=== PATIENT | female | born 1940 | race Caucasian/White ===

== ENCOUNTER 2023-07-12 16:01 | Outpatient (OUT) | payer MEDICARE, SELFPAY ==
[2023-07-12 16:45] LABS: Bilirubin Urine NEGATIVE (NEGATIVE); Blood Urine TRACE-I (NEGATIVE); Clarity Urine CLEAR (CLEAR); Color Urine LT. YELLOW (YELLOW); Glucose Urine UA NEGATIVE (NEGATIVE); Ketones Urine NEGATIVE (NEGATIVE); Leukocyte Esterase Urine NEGATIVE (NEGATIVE); Nitrite Urine NEGATIVE (NEGATIVE); Protein Urine NEGATIVE (NEG/TRACE); Urobilinogen Urine 0.2 EU/dL (0.2-1.0); pH Urine 5.5 (5.0-9.0)
== END 2023-07-12 16:02 | disposition home or self-care (01) ==
LOC: LAB 16:10
PROVIDERS: PCP Nurse Practitioner Family
DX: R35.0 Frequency of micturition (principal); N39.0 Urinary tract infection, site not specified
CPT/HCPCS: 81003; 87086

== ENCOUNTER 2023-09-09 15:27 | Outpatient (OUT) | payer MEDICARE, SELFPAY ==
--- NOTE | 2023-09-09 | CT_ITS ---
[address] [address] Patient Name: CELI RAMIREZ MRN: [id number] date: 1940 Sex: F Assigned Patient Location: CT Current Patient Location: Accession/Order Number: [id number] Exam Date: 09/09/2023 15:32 Report Date: 09/12/2023 08:38 At the request of: PUJA LOPES Procedure: CT lung screening low-dose EXAMINATION: CT lung screening low-dose HISTORY: History of tobacco use COMPARISON: CT LUNG CANCER SCREENING 09/06/2022 TECHNIQUE: Axial, Coronal, and Sagittal images were created without the administration of IV contrast material. Dose reduction techniques were achieved by using automated exposure control and/or adjustment of mA and/or kV according to patient size and/or use of iterative reconstruction technique. FINDINGS: LUNGS: Stable mild bronchiectasis. No infiltrates, mass, or significant chronic interstitial changes. PLEURA: No mass, effusion, or pneumothorax. VASCULATURE: No abnormality. RODRI: No mass or pathologic adenopathy. MEDIASTINUM: No mass or pathologic adenopathy. CARDIAC: No enlargement, pericardial thickening, or significant calcification. AORTA: No aneurysm or dissection. CHEST WALL: No mass or axillary adenopathy BONES: No bone lesion or fracture. LIMITED ABDOMEN: No suspicious findings. Limited images of the upper abdomen. OTHER: Negative. CT/CT lung screening low-dose IMPRESSION: 1. Lung-RADS Category 1 Negative. No nodules and definitely benign nodules. Continue annual screening with LDCT in 12 months. Electronically authenticated by: SWAPNA MOTTA Date: 09/12/2023 08:38
== END 2023-09-09 15:28 | disposition home or self-care (01) ==
LOC: CT 15:27
PROVIDERS: PCP Nurse Practitioner Family; Visit Provider Nurse Practitioner Family
DX: Z87.891 Personal history of nicotine dependence (principal)
CPT/HCPCS: 71271

== ENCOUNTER 2024-03-02 15:06 | Outpatient (OUT) | payer MEDICARE, SELFPAY ==
--- NOTE | 2024-03-02 | US_ITS ---
[address] [address] Patient Name: CELI RAMIREZ MRN: [id number] date: 1940 Sex: F Assigned Patient Location: Current Patient Location: Accession/Order Number: [id number] Exam Date: 03/02/2024 15:49 Report Date: 03/05/2024 12:21 At the request of: PUJA LOPES Procedure: US carotid duplex BI EXAMINATION: US carotid duplex BI HISTORY: Bilateral carotid stenosis I65.23 COMPARISON: Ultrasound carotid duplex bilateral 02/03/2023 TECHNIQUE: Duplex Doppler ultrasound analysis of carotid and vertebral arteries. . Bilateral carotid arterial duplex examination was performed using B-mode, color flow and spectral analysis. Carotid stenosis is reported according to validated velocity parameters, similar to NASCET criteria. FINDINGS: RIGHT CAROTID ARTERY: Moderate amount of smooth plaque within carotid bulb resulting in 62% area reduction. RIGHT VERTEBRAL: Antegrade flow. Subclavian: 114/12 cm/s CCA: Prox: 100/12 cm/s Mid: 85/13 cm/s Distal: 74/14 cm/s BULB: 79/10 cm/s ICA: Prox: 120/30 cm/s Mid: 128/33 cm/s Distal: 114/30 cm/s ECA: 79/0 cm/s VERTEBRAL: 51/12 cm/s ICA/CCA ratio: PSV: 1.5 EDV: 2.6 LEFT CAROTID ARTERY: Moderate amount of smooth plaque resulting in 70% area reduction of the proximal ICA and 62% area reduction of the bulb. LEFT VERTEBRAL: Antegrade flow. Subclavian: 200/0 cm/s CCA: Prox: 116/20 cm/s Mid: 87/18 cm/s Distal: 89/20 cm/s BULB: 79/18 cm/s ICA: Prox: 91/23 cm/s Mid: 130/31 cm/s Distal: 75/17 cm/s ECA: 66/0 cm/s VERTEBRAL: 58/12 cm/s ICA/CCA ratio: PSV: 1.5 EDV: 1.6 US/US carotid duplex BI IMPRESSION: 1. 0-49% flow stenosis within the right and left carotid arteries. 2. Moderate amount of smooth atherosclerotic plaque within the carotid bulbs bilaterally and within the left proximal ICA, with up to 70% area reduction within the left proximal ICA. Spectral Doppler US Thresholds Stenosis (%) PSV (cm/sec) VICA/VCCA 0-49 <150 <2.5 50-69 150-225 2.5-4.0 >70 >225 >4.0 Electronically authenticated by: SWAPNA MOTTA Date: 03/05/2024 12:21
== END 2024-03-02 15:07 | disposition home or self-care (01) ==
PROVIDERS: PCP Nurse Practitioner Family; Visit Provider Nurse Practitioner Family
DX: I65.23 Occlusion and stenosis of bilateral carotid arteries (principal); I50.32 Chronic diastolic (congestive) heart failure
CPT/HCPCS: 36415; 83880; 93880

== ENCOUNTER 2024-11-07 14:08 | Outpatient (REF) | payer MEDICARE, SELFPAY ==
--- OUTSIDE RECORDS SUMMARY | 2024-11-07 14:24 | XMS_ITS | CCD ---
Author Organization [facility] CliniSyfl Care Team Providers Care [employer] Floorperson Name Role Phone DR PARDEEP CORDOVA Admitting Unavailable ZAK, DR FALL Primary Care Unavailable CORDOVA, DR FALL Attending Unavailable MARIANNE, PUJA Attending Unavailable MARIANNE, PUJA Admitting Unavailable CORDOVA, DR FALL Primary Care Unavailable MARIANNE, PUJA Attending Unavailable MARIANNE, PUJA Admitting Unavailable CORDOVA, DR FALL Primary Care Unavailable ZIEBER, DR GUERRERO Serrano Consulting Unavailable MARIANNE, PUJA Consulting Unavailable CORDOVA, DR FALL Primary Care Unavailable MARIANNE, PUJA Admitting Unavailable ZIEBER, DR GUERRERO Serrano Consulting Unavailable MARIANNE, PUJA Attending Unavailable MARIANNE, PUJA Consulting Unavailable MARIANNE, PUJA Attending Unavailable MARIANNE, PUJA Admitting Unavailable CORDOVA, DR FALL Primary Care Unavailable LANSING, DR CELESTE Preciado Consulting Unavailable MARIANNE, PUJA Consulting Unavailable PARDEEP CORDOVA Primary Care Physician PARDEEP CORDOVA Referring Unavailable MINERVA HECK Attending Unavailable Pura Herrmann. Attending Unavailable PARDEEP CORDOVA Referring Unavailable Pardeep Cordova II Primary Care Provider [phone] Bina Bojorquez Attending Provider Bina Tsang Attending Unavailable Bina Tsang Admitting Unavailable Pardeep Cordova Primary Care Unavailable Pardeep Corodva MD Primary Care Provider [phone] Puja Gutierrez NP Unavailable [phone] PUJA GUTIERREZ Attending Unavailable PUJA GUTIERREZ Attending Unavailable PUJA GUTIERREZ Attending Unavailable ISABEL COOK Attending Unavailable Allergies Allergy Classification Reported Allergen(s) Allergy Type Date of Onset Reaction(s) Facility (2 sources) Iodine (And Iodine Containting Drugs) Drug allergy (disorder) 3 [facility] (2 sources) lansoprazole Drug Allergy 3 [facility] (1 source) Omeprazole Drug Allergy [facility] (7 sources) Penicillins; Translations: [penicillins] Drug allergy (disorder) 3 Topography unknown (body structure) [facility] (2 sources) Contrast media; Translations: [Contrast Dye] Allergy to substance unknown [facility] (4 sources) Meperidine; Translations: [meperidine] Drug Allergy 3 Topography unknown (body structure), Nausea Only [facility] (7 sources) lansoprazole; Translations: [lansoprazole] Drug Allergy 3 Unknown [facility] (5 sources) Proton Pump Inhibitors; Translations: [Proton Pump Inhibitors] Allergy to substance 4 Unknown Reaction [facility] (1 source) Penicillins Drug allergy (disorder) 4 [facility] (2 sources) Penicillins Drug Allergy 4 Unknown [facility] (2 sources) Iodinated Contrast Media Drug Intolerance 4 Rash [facility] Medications Current Medications Medication Drug Class(es) Dates Sig (Normalized) Sig (Original) aspirin 81 mg delayed release oral tablet (4 sources) Platelet Aggregation Inhibitor, Nonsteroidal Anti-inflammatory Drug Start: 05-29-2018 Aspirin (Gerson Low Dose Aspirin) 81 mg Tablet,Delayed Release (Dr/Ec) Active 81 MG PO Daily May 28, 2018 11:00pm atorvastatin 40 mg oral tablet (7 sources) HMG-CoA Reductase Inhibitor Start: 04-18-2024 Atorvastatin Active MG PO April 18, 2024 12:00am Start: 01-05-2024 Atorvastatin 4 0 mg tablet Active MG PO April 17, 2024 11:00pm Start: 09-24-2021 take 1 mg by mouth once daily atorvastatin 40 mg Tab mg tab(s), Oral, Daily, Refills(s) 0 Start Date: 09/24/21 Status: Ordered cholecalciferol 0.025 mg oral tablet (2 sources) Vitamin D take 1 tablet by mouth in the morning cholecalciferol (Vitamin D-3) 25 MCG (1000 UT) tablet Take 1,000 Units by mouth in the morning. Active dexamethasone 1 mg/ml / neomycin 3.5 mg/ml / polymyxin b [id number] unt/ml ophthalmic suspension (2 sources) Aminoglycoside Antibacterial, Polymyxin-class Antibacterial, Corticosteroid Start: 2022 take 1 drop(s) into the eye(s) four times daily [id number] AMETHasone (Maxitrol) [id number] ophthalmic suspension INSTILL 1 DROP INTO BOTH EYES 4 TIMES A DAY FOR 5-7 DAYS 2023 Active dicyclomine hydrochloride 20 mg oral tablet (2 sources) Anticholinergic Start: 2023 End: 2024 dicyclomine (Bentyl) 20 MG tablet Indications: Irritable bowel syndrome, unspecified type Take 1 tablet (20 mg) by mouth in the morning and 1 tablet (20 mg) at noon and 1 tablet (20 mg) in the evening and 1 tablet (20 mg) before bedtime. Take before meals. 120 tablet 03/07/2024 03/07/2025 Active docosahexaenoic acid 120 mg / eicosapentaenoic acid 180 mg oral capsule (2 sources) take 1 capsule by mouth in the morning omega-3 (fish oil) 1000 MG capsule Take 2 g by mouth in the morning. Active esomeprazole 40 mg delayed release oral capsule (1 source) Proton Pump Inhibitor Start: 2024 take 1 capsule by mouth once daily Esomeprazole Magnesium (Nexium) 40 mg capsule,delayed release(DR/EC) Active 40 MG PO Daily October 29, 2024 12:00am famotidine 20 mg oral tablet (3 sources) Histamine-2 Receptor Antagonist Start: 2023 take 1 tablet by mouth once daily at bedtime as needed famotidine (Pepcid) 20 MG tablet Indications: Gastrointestinal hemorrhage associated with intestinal diverticulosis TAKE 1 TABLET BY MOUTH EVERY NIGHT AT BEDTIME NEEDED 100 tablet 2 02/22/2024 Active Start: 09-24-2021 take 1 mg by mouth twice daily famotidine 20 mg Tab mg tab(s), Oral, BID, Refills(s) 0 Start Date: 09/24/21 Status: Ordered furosemide 20 mg oral tablet (2 sources) Loop Diuretic Start: 02-21-2024 End: 02-20-2025 take 1 tablet by mouth once daily furosemide (Lasix) 20 MG tablet Indications: Chronic heart failure with preserved ejection fraction (CMS/HCC) Take 1 tablet (20 mg) by mouth Daily 90 tablet 3 02/21/2024 02/20/2025 Active ibuprofen 800 mg oral tablet (2 sources) Nonsteroidal Anti-inflammatory Drug take 1 tablet by mouth every twenty-four hours as needed ibuprofen 800 MG tablet Take 800 mg by mouth Daily as needed. Active Mclean 9-Uzs-Pin-Fish Oil (Fish Oil) 1,000 mg (120 mg-180 mg) Capsule (4 sources) Start: 05-29-2018 take 1 capsule by mouth once daily Mclean 9-Ihk-Vmm-Fish Oil (Fish Oil) 1,000 mg (120 mg-180 mg) Capsule Active 1 CAP PO Daily May 28, 2018 11:00pm Start: 05-29-2018 take 1 capsule by mo [facility] once daily Mclean 8-Ihw-Pef-Fish Oil (Fish Oil) 1,000 mg (120 mg-180 mg) Capsule Active 1 CAP PO Daily May 29, 2018 12:00am ondansetron 4 mg oral tablet (4 sources) Serotonin-3 Receptor Antagonist Start: 09-07-2024 take 1 tablet by mouth every eight hours as needed for nausea and nausea and nausea ondansetron (Zofran) 4 MG tablet Indications: Nausea Take 1 tablet (4 mg) by mouth every 8 (eight) hours if needed for nausea 21 tablet 2 09/07/2024 Active Start: 09-07-2024 take 1 tablet by tiarra th every eight hours as needed for nausea and nausea and nausea ondansetron (Zofran) 4 MG tablet Indications: Nausea Take 1 tablet (4 mg) by mouth every 8 (eight) hours if needed for nausea 21 tablet 2 09/07/2024 Active Start: 06-10-2022 End: 09-07-2024 take 1 tablet by mouth every eight hours as needed for nausea ondansetron (Zofran) 4 MG tablet Take 4 mg by mouth every 8 (eight) hours if needed for nausea. 06/10/2022 09/07/2024 Discontinued (Reorder) Pediatric Multiple Vit-C-FA (pediatric multivitamin) tablet chewable split tablet (2 sources) take 1 tablet by mouth in the morning Pediatric Multiple Vit-C-FA (pediatric multivitamin) tablet chewable split tablet Take 1 tablet by mouth in the morning. Active permethrin 50 mg/ml topical cream (2 sources) Pyrethroid Start: 04-10-20 permethrin (Elimite) 5 % cream Indications: Scabies apply to skin from hairline to toes and wash off 8-10 hours later 60 g 04/10/2024 Active primidone 50 mg oral tablet (2 sources) Anti-epileptic Agent Start: 04-16-20 24 take 1 tablet by mouth at bedtime primidone (Mysoline) 50 MG tablet Indications: Essential tremor TAKE 1 TABLET BY MOUTH AT BEDTIME 90 tablet 3 04/16/2024 Active raNITIdine 150 mg oral tablet (6 sources) Histamine-2 Receptor Antagonist Start: 05-29-20 18 take 1 tablet by mouth twice daily Ranitidine Hcl 150 mg Tablet Active 150 MG PO Twice daily May 28, 2018 11:00pm End: 09-07-2024 take 1 tablet by mouth every twenty-four hours as needed raNITIdine (Zantac) 150 MG tablet Take 150 mg by mouth Daily as needed. 09/07/2024 Discontinued (Therapy completed) ubidecarenone 30 mg oral capsule (2 sources) co-enzyme Q-10 3 0 MG capsule Take 30 mg by mouth in the morning and 30 mg at noon and 30 mg in the evening. Active vitamin e d-alpha 400 unt or al capsule (2 sources) take 1 capsule by mo uth in the morning alpha tocopherol (Vitamin E) 400 units capsule Take 400 Units by mouth in the morning. Active Vitamins/Minerals tablet (2 sources) Vitamins/Mineral s tablet Daily. Active Completed/Discontinued Medications Medication Drug Class(es) Dates Sig (Normalized) Sig (Original) ALPRAZolam 0.25 mg oral tablet (4 sources) Benzodiazepine Start: 05-29-2018 End: 08-29-2024 Alprazolam 0.25 mg tablet Discontinued 1 TAB PO As Directed May 28, 2018 11:00pm August 29, 2024 12:25pm Start: 05-29-2018 Alprazolam Act ford 1 TAB PO As Directed May 29, 2018 12:00am doxycycline hyclate 100 mg oral capsule (1 source) Tetracycline-class Drug Start: 09-24-2021 doxycycline hyclate 100 mg Cap 100 mg = 1 cap(s), Oral, As Directed, Take 1 pill the day before procedure, then 1 pill after the procedure., # 2 cap(s), Refills(s) 0, Pharmacy: [id number], 165, cm, 09/24/21 15:04:00 EST, Height/Length Dosing, 85, kg, 09/24/21 15:04:00 EST... Start Date: 09/24/21 Status: Ordered fluconazole 100 mg oral tablet (4 sources) Azole Antifungal Start: 05-29-2018 End: 08-29-2024 take 1 tablet by mouth once daily Fluconazole 100 mg tablet Discontinued 1 TAB PO Daily May 28, 2018 11:00pm August 29, 2024 12:25pm omeprazole 40 mg delayed release oral capsule (1 source) Proton Pump Inhibitor Start: 10-29-2024 End: 10-29-2024 take 1 capsule by mouth once daily Omeprazole 40 mg capsule,delayed release(DR/EC) Discontinued 40 MG PO Daily 30 October 29, 2024 12:00am October 29, 2024 9:41am Problems Active Problems Problem Classification Problem Date Documented Da te Episodic/Chronic Abdominal pain (2 sources) Abdominal pain; Translations: [Unspecified abdominal pain] 10-29-2024 Episodic Anxiety disorders (2 sources) Generalized anxiety disorder; Translations: [Generalized anxiety disorder] Onset: 3 04-21-2023 Chronic Cancer of head and neck (2 sources) Malignant tumor of glottis; 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] Onset: 3 04-25-2023 Chronic Cardiac dysrhythmias (1 source) Palpitations; Translations: [PALPITATIONS] Onset: 3 Episodic Conditions associated with dizziness or vertigo (2 sources) Meniere's disease; Translations: [Meniere's disease, unspecified ear] Onset: 3 04-21-2023 Chronic Conditions associated with dizziness or vertigo (1 source) Dizziness and giddiness; Translations: [DIZZINESS AND GIDDINESS] Onset: 3 Episodic Congestive heart failure; nonhypertensive (2 sources) Chronic heart failure co-occurrent with normal ejection fraction; Translations: [Chronic diastolic (congestive) heart failure] Onset: 3 04-25-2023 Chronic Diabetes mellitus with complications (2 sources) Secondary diabetes mellitus; Translations: [Diabetes mellitus due to underlying condition with other circulatory complications] Onset: 3 04-25-2023 Chronic Disorders of lipid metabolism (6 sources) Dyslipidemia; Translations: [Hyperlipidemia, unspecified] Onset: 3 04-21-2023 Chronic Diverticulosis and diverticulitis (6 sources) Diverticular disease; Translations: [Diverticulosis of intestine, part unspecified, without perforation or abscess without bleeding] Onset: 8 09-07-2024 Chronic Esophageal disorders (4 sources) Gastroesophageal reflux disease without esophagitis; Translations: [Gastro-esophageal reflux disease without esophagitis] Onset: 3 09-07-2024 Chronic Essential hypertension (2 sources) Essential hypertension; Translations: [Essential (primary) hypertension] Onset: 7 08-18-2023 Chronic Malaise and fatigue (2 sources) Fatigue; Translations: [Chronic fatigue, unspecified] Onset: 3 04-21-2023 Chronic Malaise and fatigue (1 source) Weakness; Translations: [WEAKNESS] Onset: 3 Episodic Menopausal disorders (3 sources) Other primary ovarian failure; Translations: [Decreased estrogen level] Onset: 3 04-21-2023 Chronic Miscellaneous mental health disorders (2 sources) Primary insomnia; Translations: [Primary insomnia] Onset: 3 04-21-2023 Chronic Nausea and vomiting (4 sources) Nausea; Translations: [Nausea] 09-07-2024 Episodic Nutritional deficiencies (2 sources) Vitamin D deficiency; Translations: [Vitamin D deficiency, unspecified] Onset: 3 04-21-2023 Chronic Occlusion or stenosis of precerebral arteries (14 sources) Occlusion and stenosis of unspecified carotid artery; Translations: [Bilateral stenosis of carotid arteries] Onset: 3 Chronic Other bone disease and musculoskeletal deformities (1 source) Other specified disorders of bone density and structure, right thigh; Translations: [OTH D/O BONE DEN STRUCT RT THIGH] Onset: 3 Episodic Other diseases of bladder and urethra (2 sources) Overactive bladder; Translations: [Other neuromuscular dysfunction of bladder] Onset: 3 04-21-2023 Chronic Other ear and sense organ disorders (2 sources) Sensorineural hearing loss, bilateral; Translations: [Sensorineural hearing loss, bilateral] Onset: 3 04-21-2023 Chronic Other gastrointestinal disorders (4 sources) Slow transit constipation; Translations: [Slow transit constipation] Onset: 3 09-07-2024 Episodic Other gastrointestinal disorders (1 source) Constipation alternates with diarrhea; Translations: [Other specified symptoms and signs involving the digestive system and abdomen] 10-29-2024 Episodic Other gastrointestinal disorders (1 source) H/O: gastrointestinal disease; Translations: [Personal history of other diseases of the digestive system] 10-29-2024 Episodic Other gastrointestinal disorders (1 source) Altered bowel function; Translations: [Other specified symptoms and signs involving the digestive system and abdomen] 10-29-2024 Episodic Other gastrointestinal disorders (2 sources) Other specified symptoms and signs involving the digestive system and abdomen; Translations: [Other symptoms involving digestive system] 10-29-2024 Episodic Other gastrointestinal disorders (1 source) Personal history of other diseases of the digestive system; Translations: [Personal history of other diseases of digestive system] 10-29-2024 Episodic Other nervous system disorders (2 sources) Chronic pain; Translations: [Other chronic pain] Onset: 3 04-21-2023 Chronic Other screening for suspected conditions (not mental disorders or infectious disease) (5 sources) Encounter for screening mammogram for malignant neoplasm of breast; Translations: [Encounter for screening for malignant neoplasm of respiratory organs] Onset: Episodic Other upper respiratory disease (2 sources) Allergic rhinitis; Translations: [Allergic rhinitis, unspecified] Onset: 3 04-21-2023 Chronic Other upper respiratory disease (2 sources) Nasal discharge; Translations: [Other specified disorders of nose and nasal sinuses] 09-07-2024 Episodic Other upper respiratory infections (4 sources) Chronic sinusitis; Translations: [Other chronic sinusitis] Onset: 3 04-21-2023 Chronic Peripheral and visceral atherosclerosis (2 sources) Peripheral vascular disease; Translations: [Peripheral vascular disease, unspecified] Onset: 3 04-21-2023 Chronic Residual codes; unclassified (1 source) Family history of malignant neoplasm of bladder; Translations: [FAM HX MALIGNANT NEOPLASM BLADDER] Onset: Episodic Residual codes; unclassified (1 source) Family history of colorectal cancer; Translations: [Family history of malignant neoplasm of digestive organs] 10-29-2024 Episodic Residual codes; unclassified (1 source) Family history of malignant neoplasm of digestive organs; Translations: [Family history of malignant neoplasm of gastrointestinal tract] 10-29-2024 Episodic Screening and history of mental health and substance abuse codes (6 sources) Personal history of nicotine dependence; Translations: [Ex-smoker] Onset: 2 04-18-2024 Episodic Varicose veins of lower extremity (5 sources) Varicose veins of lower limb co-occurrent with edema; Translations: [Varicose veins of bilateral lower extremities with other complications] Onset: 4 04-18-2024 Episodic Past or Other Problems Problem Classification Problem Date Documented Da te Episodic/Chronic Abdominal hernia (2 sources) Hiatal hernia; Translations: [Diaphragmatic hernia without obstruction or gangrene] Onset: 04-21-2023 04-21-2023 Episodic Cancer of head and neck (2 sources) History of malignant neoplasm of larynx; Translations: [Personal history of malignant neoplasm of larynx] Onset: 07-15-2021 08-18-2023 Episodic Disorders of teeth and jaw (2 sources) Toothache; Translations: [Other specified disorders of teeth and supporting structures] Onset: 04-21-2023 04-21-2023 Episodic Genitourinary symptoms and ill-defined conditions (6 sources) Blood in urine; Translations: [Hematuria, unspecified] Onset: 05-17-2017 08-18-2023 Episodic Mood disorders (2 sources) Mood disorders Onset: 04-26-2024 04-26-2024 Other diseases of veins and lymphatics (2 sources) Venous varices; Translations: [Varicose veins of other specified sites] Onset: 04-21-2023 04-21-2023 Episodic Other ear and sense organ disorders (2 sources) Bilateral tinnitus; Translations: [Tinnitus, bilateral] Onset: 04-21-2023 04-21-2023 Episodic Other ear and sense organ disorders (2 sources) Tinnitus; Translations: [Tinnitus, unspecified ear] Onset: 04-21-2023 04-21-2023 Episodic Other gastrointestinal disorders (2 sources) Dysphagia; Translations: [Dysphagia, unspecified] Onset: 04-21-2023 04-21-2023 Episodic Other gastrointestinal disorders (2 sources) Oral phase dysphagia; Translations: [Dysphagia, oral phase] Onset: 04-21-2023 04-21-2023 Episodic Residual codes; unclassified (2 sources) Insomnia; Translations: [Insomnia, unspecified] Onset: 04-21-2023 04-21-2023 Episodic Urinary tract infections (2 sources) Recurrent urinary tract infection; Translations: [Urinary tract infection, site not specified] Onset: 06-22-2023 02-02-2024 Episodic Results Test Name Value Interpretation Reference Range Facil ity US carotid doppler BIon 08-17 US carotid doppler BI [facility] [address] [place] [address] Ultrasound Report Signed Patient: Veronica Ramirez MR#: [id number] 65 : 1940 Acct:[id number] Age/Sex: 84 / F ADM Date: 08/29/24 Loc: [facility] Room: Type: [facility] Attending Dr: Bina Tsang [employer]PER[employer]OR-[employer] Ordering Provider: Bina Tsang APRN Date of Service: 08/29/24 US/US carotid doppler BI: I65.23 - Occlusion and stenosis of bilateral carotid mayito... Copies to: Bina Tsang APRN CAROTID DUPLEX INDICATION: Surveillance study for possible carotid artery stenoses identified at outside hospital. PROCEDURE: Color-flow duplex scanning is used to interrogate the extracranial carotid arterial system, as well as both vertebral arteries. Both carotid bifurcations show some smooth homogeneous plaque formation. The proximal right internal carotid artery shows a highest peak systolic velocity of 145 cm/s with an end-diastolic velocity of 27.1 cm/s . The mid internal carotid artery measures 114 cm/s peak systolic with an end diastolic velocity of 20.4 cm/s . The distal segment measures 60.8 cm/s peak systolic with an end diastolic velocity of 15.3 cm/s . The velocities of the right common carotid artery are 119 cm/s peak systolic and 19.4 cm/s end-diastolic and 84 cm/s peak systolic and 13.3 cm/s end diastolic distally. The peak systolic velocity ratio of the internal to the common carotid artery is 1.22 . The external carotid artery measures 103 cm/s peak systolic. The right vertebral artery is patent at 49.2 cm/s peak systolic with antegrade flow. The proximal left internal carotid artery shows a highest peak systolic velocity of 124 cm/s with an end-diastolic velocity of 24.3 cm/s . The mid internal carotid artery measures 155 cm/s peak sys tolic with an end diastolic velocity of 32.9 cm/s . The distal segment measures 88.2 cm/s peak systolic with an end diastolic velocity of 20.5 cm/s . The velocities of the left common carotid artery are 132 cm/s peak systolic and 14.9 cm/s end-diastolic and 107 cm/s peak systolic and 23.1 cm/s end diastolic distally. The peak systolic velocity ratio of the internal to the common carotid artery is 1.17 . The external carotid artery measures 96 cm/s peak systolic. The left vertebral artery is patent at 72 cm/s peak systolic with antegrade flow. US/US carotid doppler BI IMPRESSION: MILD PLAQUE FORMATION IS NOTED BILATERALLY, WITH LESS THAN 50% STENOSIS OF BOTH EXTRACRANIAL INTERNAL CAROTID ARTERY. BOTH VERTEBRAL ARTERIES ARE PATENT WITH ANTEGRADE FLOW. Impression dictated by: Jose Muñoz MD08/29/2024 3:57 PM Dictation Location: [place] [address] Tech: Minerva Colon Transcribed By: [facility] 08/29/24 1557 Dictated By: Jose Muñoz MD 08/29/24 155 Signed By: 08/29/24 1557 Normal [facility] MG MAMM SCREEN 3D GOMEZ CADon 02-14-2023 MG MAMM SCREEN 3D GOMEZ CAD Patient: VERONICA RAMIREZ Exam Date: 02/14/2023 : 1940 Gender:F Ordering : MRS. LUO MARIANNE [employer] SUPERVISOR-C Admission #: [id number] Family : Order #: [id number] CLICK HERE TO VIEW EXAM RADIOLOGY REPORT PROCEDURE: MAMMOGRAM SCREENING 3D BILATERAL CAD COMPARISON: MG MAMM SCREEN 3D GOMEZ CAD, 08/20/2021. MG MAMM SCREEN GOMEZ W CAD, 08/19/2020. MG MAMM SCREEN GOMEZ W CAD, 02/20/2019. DIGITIZED_MAMMO, 03/08/2007. INDICATIONS: Screening mammography Calculator Name NCI Breast Cancer Risk Assessment Tool 5 Year Breast Cancer Risk 1.30% Lifetime Breast Cancer Risk 1.80% Personal Breast Cancer No Personal Ovarian Cancer No Treatments None Family Cancers Brother with bladder cancer at age 69. LOCATION: [facility] BREAST COMPOSITION: Scattered areas fibroglandular density. FINDINGS: DIAGNOSTIC CATEGORY 2--BENIGN FINDING: RIGHT BREAST: No significant suspicious finding. Stable benign-appearing nodules are present. Stable benign-appearing cluster of calcifications. This exam includes additional mammographic views for implant evaluation and shows no visible implant disruption. No significant change has occurred. LEFT BREAST: No significant suspicious finding. Scattered benign-appearing nodules are present. This exam includes additional mammographic views for implant evaluation and shows no visible implant disruption. No significant change has occurred. RECOMMENDATIONS: ROUTINE MAMMOGRAM AND CLINICAL EVALUATION IN 12 MONTHS. PLEASE NOTE: A NORMAL MAMMOGRAM DOES NOT EXCLUDE THE POSSIBILITY OF BREAST CANCER. A CLINICALLY SUSPICIOUS PALPABLE LUMP SHOULD BE BIOPSIED. Dictated by: Guerrero Dyson M.D. on 02/15/2023 at 11:32 Approved by: Guerrero Dyson M.D. on 02/15/2023 at 11:47 Normal [facility] XR DEXA BONE DENSITYon 02-14 XR DEXA BONE DENSITY EXAMINATION: XR DEXA BONE DENSITY, 02/14/2023 2:09 PM EDT HISTORY: Primary ovarian failure COMPARISON: DEXA bone densitometry 08/19/2020 TECHNIQUE: Dual-energy X-ray absorptiometry (DEXA) bone density study performed for the axial skeleton. FINDINGS: SPINE ANALYSIS: Average bone mineral density is 1.111 g/cm2. T-score (standard deviation relative to young adult mean): -0.6 . -1.5% change since prior study. HIP ANALYSIS: Lowest bone mineral density is within the right femoral trochanter, 0.622 g/cm2. T-score (standard deviation relative to young adult mean): -2.0 . -2.5% change since prior study. IMPRESSION: World [employer] Classification: Osteopenia - Moderate Fracture Risk Electronically authenticated by: GUERRERO DYSON Date: 2023-02-14 15:29 Normal [facility] ECHOCARDIO M/2D COMPLETEon 0 02-03-2023 ECHOCARDIO M/2D COMPLETE Patient: VERONICA RAMIREZ Exam Date: 02/03/2023 : 1940 Gender:F Ordering : MRS. PUJA GUTIERREZ WEAVE ROOM SUPERVISOR-C Admission #: [id number] Family : Order #: [id number] CLICK HERE TO VIEW EXAM ECHOCARDIOGRAM REPORT PROCEDURE: CARDIO PULMONARY ECHOCARDIO M/2D COMP INDICATIONS: Palpitations, dizziness, weakness COMPARISON: None. DESCRIPTION: COMPLETE ECHOCARDIOGRAM Real-time transthoracic echocardiography with 2D, M-mode, spectral and color flow Doppler performed. QUALITY: Technical quality was good. LEFT VENTRICLE: Normal chamber size. Borderline left ventricular hypertrophy. Global left ventricular systolic function is normal. LV EF: Estimated left ventricular ejection fraction is 60% DIASTOLIC: Grade II diastolic dysfunction. ATRIAL SEPTUM: LEFT ATRIUM: Mild dilatation. RIGHT ATRIUM: Mild dilatation. RIGHT VENTRICLE: Mild dilatation. Normal right ventricular systolic function. TRICUSPID VALVE: Normal mobility and thickness. No stenosis with trivial regurgitation. No evidence of pulmonary hypertension. RVSP 30 mmHg MITRAL VALVE: Mildly thickened with normal mobility. No mitral valve prolapse. No evidence of mitral valve stenosis. Mild mitral annular calcification. Mild mitral regurgitation. AORTIC VALVE: Normal trileaflet appearance. No visible sclerosis. Normal leaflet mobility. No evidence of aortic valve stenosis. No aortic regurgitation. AORTIC ROOT: Normal diameter and appearance. PULMONIC VALVE: Normal thickness and mobility. No stenosis. Trivial regurgitation. PERICARDIUM: No evidence of pericardial effusion. IVC: Collapses with inspirations. Normal size. PLEURA: CONCLUSION: 1. Left ventricular systolic function is normal. LVEF is 60%. 2. Mildly dilated right ventricle with normal systolic function. 3. Grade 2 diastolic dysfunction. 4. Mild biatrial dilatation. 5. Mild mitral regurgitation. 6. Normal right-sided pressures. 7. No pericardial effusion. Adult Echocardiography Procedure Report Left Ventricle LVEDD (3.7 - 5.6 cm): 3.54 cm LVESD (2.2 - 4.0 cm): 2.45 cm LVIVS thickness (0.6 - 1.2 cm): 1.09 cm LVPW thickness (0.5 - 1.0 cm): 0.95 cm e': 0.07 m/s E - e': 14.99 LVOT Max Gradient: 3.79 mm[Hg] Peak Velocity (LVOT): 0.97 m/s Mean Velocity (LVOT): 0.61 m/s LVOT Diameter 1.76 cm Left Ventricular Ejection Fraction: 60 % Left Atrium LA Volume Index (2D A2C): 58.18 ml, 58.18 ml Left Atrium Systolic Dimension: 2.77 cm Mitral Valve MV E to A Ratio: 0.88 Mitral Valve A-Wave Peak Velocity: 1.16 m/s Mitral Valve E-Wave Peak Velocity: 1.02 m/s Right Ventricle RV Internal Diastolic Dimension: 4.31 cm Aorta AO Root Diam: 3.16 cm Ascending Ao Diam: 2.81 cm Aortic Valve AoV Area (Peak Carson): 1.88 cm2, 1.88 cm2 AoV Area (VTI): 1.65 cm2, 1.65 cm2 Peak Velocity(Antegrade Flow): 1.26 m/s Peak Gradient(Antegrade Flow): 6.31 mm[Hg] Mean Velocity(Antegrade Flow): 0.80 m/s Mean Gradient(Antegrade Flow): 2.98 mm[Hg] Velocity Time Integral: 31.05 cm Tricuspid Valve Peak Velocity (Regurgitant Flow): 1.80 m/s, 2.52 m/s, 2.60 m/s Peak Velocity: 0.41 m/s Pulmonic Valve Mean Gradient: 1.24 mm[Hg] Mean Velocity: 0.53 m/s Peak Velocity: 0.75 m/s, 0.68 m/s Peak Gradient: 2.22 mm[Hg], 1.85 mm[Hg] Right Atrium Right Atrium Systolic Pressure: 57.36 ml, 57.36 ml Dictated by: Won Yang M.D. on 02/03/2023 at 20:28 Approved by: Won Yang M.D. 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 TECHNIQUE: Duplex Doppler ultrasound analysis of carotid and vertebral arteries. . Bilateral carotid arterial duplex examination was performed using B-mode, color flow and spectral analysis. Carotid stenosis is reported according to validated velocity parameters, similar to NASCET criteria. FINDINGS: RIGHT CAROTID ARTERY Mild atherosclerotic plaque Subclavian: PSV: 217.2 cm/s cm/s EDV: 0.0 cm/s cm/s CCA: Prox: PSV: 80.1 cm/s cm/s EDV: 12.8 cm/s cm/s Mid: PSV: 77.5 cm/s cm/s EDV: 10.2 cm/s cm/s Distal: PSV: 68.5 cm/s cm/s EDV: 12.8 cm/s cm/s BULB: PSV: 58.1 cm/s cm/s EDV: 12.8 cm/s cm/s ICA: Prox: PSV: 112.1 cm/s cm/s EDV: 31.3 cm/s cm/s Mid: PSV: 106.2 cm/s cm/s EDV: 29.4 cm/s cm/s Distal: PSV: 101.6 cm/s cm/s EDV: 20.8 cm/s cm/s ECA: PSV: 62.8 cm/s cm/s EDV: 6.3 cm/s cm/s VERTEBRAL: PSV: 42.7 cm/s cm/s EDV: 11.3 cm/s cm/s ICA/CCA ratio: PSV: 1.4 EDV: 2.4 LEFT CAROTID ARTERY Moderate atherosclerotic plaque. 63% area reduction proximal ICA Subclavian: PSV: 176 cm/s EDV: 0.0 cm/s CCA: Prox: PSV: 84 cm/s EDV: 19.2 cm/s Mid: PSV: 77 cm/s EDV: 16.0 cm/s Distal: PSV: 74 cm/s EDV: 16.0 cm/s BULB: PSV: 63 cm/s EDV: 14.4 cm/s ICA: Prox: PSV: 82 cm/s EDV: 25.7 cm/s Mid: PSV: 125 cm/s EDV: 27.6 cm/s Distal: PSV: 125 cm/s EDV: 27.6 cm/s ECA: PSV: 60 cm/s EDV: 6.5 cm/s VERTEBRAL: PSV: 45 cm/s EDV: 11.3 cm/s ICA/CCA ratio: PSV: 1.5 EDV: 1.4 IMPRESSION: 63% area of reduction in the proximal left ICA Flow velocities suggests 0-49% flow stenosis right internal carotid artery Spectral Doppler US Thresholds (Reference: Hamilton EG, et al. Radiology 2000; 214:247-252) Stenosis (%) PSV (cm/sec) VICA/VCCA 0-49 <150 <2.5 50-69 150-225 2.5-4.0 >70 >225 >4.0 Electronically authenticated by: CELESTE BRAND Date: 2023-02-03 17:52 Normal [facility] CT LUNG CANCER SCREENINGon 1 11-07-2021 CT LUNG CANCER SCREENING EXAMINATION: CT LUNG CANCER SCREENING HISTORY: Screening for malignant neoplasm of respiratory tract COMPARISON: CT chest 08/20/2021 TECHNIQUE: Axial, Coronal, and Sagittal images were created without the administration of IV contrast material. Dose reduction techniques were achieved by using automated exposure control and/or adjustment of mA and/or kV according to patient size and/or use of iterative reconstruction technique. FINDINGS: LUNGS: Mild bronchiectasis. No infiltrates, mass, or significant chronic interstitial changes. PLEURA: No mass, effusion, or pneumothorax. VASCULATURE: No abnormality. RODRI: No mass or pathologic adenopathy. MEDIASTINUM: No mass or pathologic adenopathy. CARDIAC: No enlargement, pericardial thickening, or significant calcification. AORTA: No aneurysm or dissection. CHEST WALL: No mass or axillary adenopathy BONES: No bone lesion or fracture. LIMITED ABDOMEN: No suspicious findings. Limited images of the upper abdomen. OTHER: Negative. IMPRESSION: 1. Lung-RADS Category 1 Negative. No nodules and definitely benign nodules. Continue annual screening with LDCT in 12 months. Electronically authenticated by: GUERRERO DYSON Date: 2022-09-07 21:47 Normal [facility] Vital Signs Date Time Vital Sign Value Performing Clinician Facility 10-29-2024 09:06-0500 Body height 166.37 cm Pardeep Cordova II Work Phone: [facility] 10-29-2024 09:06-0500 Body mass index (BMI) [Ratio] 29.8 kg/m2 Pardeep Cordova II Work Phone: [facility] 10-29-2024 09:06-0500 Body weight 82.7 kg Pardeep Cordova II Work Phone: [facility] 09-07-2024 11:41-0500 Body height 166.4 cm Isabel Hemmer PA Work Phone: [facility] 09-07-2024 11:41-0500 Body mass index (BMI) [Ratio] 28.68 kg/m2 Isabel Hemmer PA Work Phone: [facility] 09-07-2024 11:41-0500 Body weight 79.38 kg Isabel Hemmer PA Work Phone: [facility] 09-07-2024 11:41-0500 Diastolic blood pressure 78 mm[Hg] Isabel Hemmer PA Work Phone: [facility] 09-07-2024 11:41-0500 Heart rate 66 /min Isabel Hemmer PA Work Phone: [facility] 09-07-2024 11:41-0500 SaO2% (BldA) [Mass fraction] 96 % Isabel Hemmer PA Work Phone: [facility] 09-07-2024 11:41-0500 Systolic blood pressure 128 mm[Hg] Isabel Hemmer PA Work Phone: [facility] 08-29-2024 12:25-0500 Body temperature 96.7 [degF] Pardeep Cordova II Work Phone: [facility] 08-29-2024 12:25-0500 Diastolic blood pressure 70 mm[Hg] Pardeep Cordova II Work Phone: [facility] 08-29-2024 12:25-0500 Heart rate 78 /min Pardeep Cordova II Work Phone: [facility] 08-29-2024 12:25-0500 SaO2% (BldA) [Mass fraction] 95 % Pardeep Cordova II Work Phone: [facility] 08-29-2024 12:25-0500 Systolic blood pressure 128 mm[Hg] Pardeep Cordova II Work Phone: [facility] 04-18-2024 11:54-0400 Body height 166.37 cm [facility] 04-18-2024 11:54-0400 Body mass index (BMI) [Ratio] 29.5 kg/m2 [facility] 04-18-2024 11:54-0400 Body temperature 97.8 [degF] [facility] 04-18-2024 11:54-0400 Body weight 81.64 kg [facility] 04-18-2024 11:54-0400 Diastolic blood pressure 82 mm[Hg] [facility] 04-18-2024 11:54-0400 Heart rate 64 /min [facility] 04-18-2024 11:54-0400 Respiratory rate 16 /min [facility] 04-18-2024 11:54-0400 SaO2% (BldA) [Mass fraction] 98 % [facility] 04-18-2024 11:54-0400 Systolic blood pressure 124 mm[Hg] [facility] Encounters Encounter Date Encounter Type Care Provider Facility Start: 10-29-2024 End: 10-29-2024 ambulatory Pardeep Cordova II Work Phone: [facility] Work Phone: Start: 10-29-2024 End: 10-29-2024 Patient encounter procedure Pardeep Cordova II Work Phone: [facility] Physician [facility] Work Phone: Start: 09-07-2024 End: 09-07-2024 Office outpatient visit 25 minutes Isabel COTO Work Phone: [facility] Comment on above: Diverticulosis (Prim stacey Dx); Gastroesophageal reflux disease without esophagitis; Nausea; Slow transit constipation; Nasal drainage Start: 09-07-2024 End: 09-07-2024 ambulatory ISABEL COOK Not Available Start: 08-29-2024 End: 08-29-2024 Patient encounter procedure Pardeep Cordova II Work Phone: [facility] Physician [facility] Work Phone: Start: 08-29-2024 End: 08-29-2024 ambulatory Pardeep Cordova II Work Phone: [facility] Work Phone: Start: 04-26-2024 End: 04-26-2024 ambulatory PUJA GUTIERREZ Not Available Start: 04-18-2024 End: 04-18-2024 ambulatory [facility] Work Phone: Start: 04-18-2024 End: 04-18-2024 Patient encounter procedure [facility] V[facility] Work Phone: Start: 02-21-2024 End: 02-21-2024 ambulatory PUJA GUTIERREZ Not Available Start: 02-02-2024 End: 02-02-2024 ambulatory PUJA GUTIERREZ Not Available Start: 04-20-2023 End: 04-21-2023 ambulatory Pura Herrmann Facility:[facility] Start: 04-20-2023 End: 04-20-2023 Patient encounter procedure Pura Herrmann [facility] Start: 03-09-2023 ambulatory PARDEEP CORDOVA Facility :[facility] Start: 02-14-2023 End: 02-15-[address] PARDEEP CORDOVA Facility:[facility] Start: 02-03-2023 End: 02-04-2023 ambulatory PUJA GUTIERREZ Facility:[facility] Start: 09-30-[address] PARDEEP CORDOVA Facilit y:[facility] Start: 09-11-2022 Encounter for genera l adult medical examination without abnormal findings PUJA GUTIERREZ [facility] Start: 09-06-2022 End: 09-07-2022 ambulatory PUJA GUTIERREZ Facility:[facility] Start: 09-06-2022 End: 09-07-2022 Encounter for general adult medical examination without abnormal findings PUJA GUTIERREZ Facility:[facility] Start: 06-12-2022 ambulatory PUJA GUTIERREZ Facility :[facility] Procedures Date Procedure Procedure Detail Performing Clinician Start: 08-29-2024 Doppler ultrasonogra phy of bilateral carotid arteries Pardeep Cordova II Work Phone: Start: 07-04-2015 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 Pura Lue Start: 11-01-2011 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 Pura Luroxi Start: 01-19-2006 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 Pura Luroxi Start: 12-14-2001 Cystoscope, device ( physical object) Pura Lue Breast prosthesis, d evice (physical object) Pura Lue Ligation of fallopian tube K athy Lue Plan of Treatment Date Care Activity Detail Author Start: 08-29-2024 Doppler ultrasonography of bilateral carotid arteries US carotid doppler BI [facility] Start: 10-14-2022 Pneumococcal Vaccine: 65+ Years (2 of 2 - PCV) Pneumococcal Vaccine: 65+ Years (2 of 2 - PCV) [facility] CT Abdomen and Pelvi s W contrast IV [facility] US.doppler Carotid arteries - bilateral [facility] Immunizations Immunization Date Immunization Notes Care Provider Fa cility 08-21-2024 zoster vaccine recombinant Isabel Hemmer PA Work Phone: [facility] 07-20-2024 influenza, high dose seasonal, preservative-free Isabel Hemmer PA Work Phone: [facility] 07-07-2023 Influenza, Seasonal, Quadrivalent, Adjuvanted Isabel Hemmer PA Work Phone: [facility] 09-16-2022 Influenza, Seasonal, Quadrivalent, Adjuvanted Isabel Hemmer PA Work Phone: [facility] 07-12-2022 Moderna SARS-CoV-2 50mcg/0.5mL Booster Isabel Hemmer PA Work Phone: [facility] 10-14-2021 pneumococcal polysaccharide vaccine, 23 valent Isabel Hemmer PA Work Phone: [facility] 09-09-2021 Influenza, High-dose Seasonal, Quadrivalent, Preservative Free Isabel Hemmer PA Work Phone: [facility] 10-17-2020 SARS-CoV-2 (COVID-19 ) mRNA BNT-162b2 vax Pura Herrmann [facility] Comment on above: Result Comment: pt i s fully vaccinated and has had a booster but does not have her card for the dates. 08-06-2020 influenza, high dose seasonal, preservative-free Isabel COTO Work Phone: [facility] 05-16-2015 pneumococcal polysaccharide vaccine, 23 valent Isabel COTO Work Phone: [facility] 09-03-2014 influenza virus vacc ine, whole virus Isabel COTO Work Phone: [facility] 07-02-2013 seasonal influenza, intradermal, preservative free Isabel COTO Work Phone: [facility] 10-17-2012 zoster vaccine, live Isabel COTO Work Phone: [facility] 10-29-2011 zoster vaccine, live Isabel COTO Work Phone: [facility] 01-15-2005 pneumococcal polysaccharide vaccine, 23 valent Isabel COTO Work Phone: [facility] Payers Date Payer Category Payer Self-pay [id number] 2022 Medicare (Managed Care) [facility] MEDICARE [id number] 2021 Medicare [id number] 2021 Private Health Insurance [id number] 1959 Medicare [id number] 1959 Self-pay [id number] 1940 Unknown [id number] 1940 Unknown [id number] .593 1940 Unknown [id number] .593 1940 Unknown [id number] .593 1940 Unknown [id number] .593 1940 Unknown [id number] .727 1940 Unknown [id number] [id number] .727 1940 Unknown [id number] [id number] .1259 1940 Unknown [id number] [id number] .1259 1940 Unknown [id number] [id number] .1259 1940 Unknown [id number] [id number] .1259 Medicare Medicare [id number] Private Health Insurance [id number] Private Health Insurance [facility] [id number] Unknown [id number] Social History Date Type Detail Facility Start: 09-24-2021 End: 03-15-2024 Tobacco smoking status Ex-smoker (finding) [facility] Sex Assigned At Sex [facility] Start: 1940 Sex Assigned At Female F [facility] Start: 08-29-2024 End: 10-29-2024 Sex Female (finding) [facility] Start: 09-07-2024 [facility] Start: 09-07-2024 Tobacco use and exposure Smokeless tobacco non-user [facility] Start: 04-26-2024 End: 09-07-2024 History of Social function [facility] Start: 04-26-2024 End: 09-07-2024 Tobacco use panel [facility] Start: 1940 Sex assigned at Not on file [facility] History of Present illness Narrative 09-07-2024 NNAMDI Kendrick - 09/07/2024 11:30 AM EST Note Date & Type Note Facility 09-07-2024 History of Presen t illness Narrative Images from the original note were not included. Subjective Patient ID: Veronica Ramirez is a 84 y.o. female who presents for Nausea and bowel issues.. Pt states this has been going on for three weeks, nauseated all the time, pt is very gassy, lots of bowels noises. Pt did restart taking Bentyl and this has helped some on Tuesday. Pt is burping a lot also takes Pepcid. States was helping previously, but not as much now. Did take Zofran a little bit, which did help, but stopped it when she started Bentyl. Pt was having 5 BM's a day, specks of fecal matter in the toilet. Since taking the Bentyl she does have some form to her stool. Pt has pressure all the time, the feeling like she has to have a BM all the time. Pt does have an appt with a front desk person. Seeing Dr. Jason Iyer on 10/29/2024. Pt is worried about side effects with the Bentyl. Takes the Ibuprofen 800 mg only like once a month or so. Drinks normally about a quart of water a day. Current Outpatient Medications on File Prior to Visit Medication Sig Dispense Refill alpha tocopherol (Vitamin E) 400 units capsule Take 400 Units by mouth in the morning. atorvastatin (Lipitor) 40 MG tablet TAKE 1 TABLET BY MOUTH ONCE DAILY 100 tablet 3 cholecalciferol (Vitamin D-3) 25 MCG (1000 UT) tablet Take 1,000 Units by mouth in the morning. co-enzyme Q-10 30 MG capsule Take 30 mg by mouth in the morning and 30 mg at noon and 30 mg in the evening. dicyclomine (Bentyl) 20 MG tablet Take 1 tablet (20 mg) by mouth in the morning and 1 tablet (20 mg) at noon and 1 tablet (20 mg) in the evening and 1 tablet (20 mg) before bedtime. Take before meals. (Patient taking differently: Take 20 mg by mouth 4 (four) times a day as needed) 120 tablet 11 famotidine (Pepcid) 20 MG tablet TAKE 1 TABLET BY MOUTH EVERY NIGHT AT BEDTIME NEEDED 100 tablet 2 furosemide (Lasix) 20 MG tablet Take 1 tablet (20 mg) by mouth Daily (Patient taking differently: Take 20 mg by mouth if needed) 90 tablet 3 ibuprofen 800 MG tablet Take 800 mg by mouth Daily as needed. cwlsnthm-[id number]-[id number] (Maxitrol) [id number] ophthalmic suspension INSTILL 1 DROP INTO BOTH EYES 4 TIMES A DAY FOR 5-7 DAYS omega-3 (fish oil) 1000 MG capsule Take 2 g by mouth in the morning. Pediatric Multiple Vit-C-FA (pediatric multivitamin) tablet chewable split tablet Take 1 tablet by mouth in the morning. permethrin (Elimite) 5 % cream apply to skin from hairline to toes and wash off 8-10 hours later 60 g 0 primidone (Mysoline) 50 MG tablet TAKE 1 TABLET BY MOUTH AT BEDTIME 90 tablet 3 Vitamins/Minerals tablet Daily. [DISCONTINUED] ondansetron (Zofran) 4 MG tablet Take 4 mg by mouth every 8 (eight) hours if needed for nausea. [DISCONTINUED] raNITIdine (Zantac) 150 MG tablet Take 150 mg by mouth Daily as needed. No current facility-administered medications on file prior to visit. I have reviewed and reconciled the history and medication list with the patient today. Allergies Allergen Reactions Lansoprazole Unknown Meperidine Nausea Only Penicillins Unknown Other Reaction(s): Unknown body region Iodinated Contrast Media Rash Social History Tobacco Use Smoking status: Never Smokeless tobacco: Never Family History Problem Relation Name Age of Onset Hypertension Father Past Medical History: Diagnosis Date Actinic keratoses GERD (gastroesophageal reflux disease) H/O laryngeal cancer Osteopenia Throat cancer (CMS/HCC) 2003 Past Surgical History: Procedure Laterality Date BREAST BIOPSY negative COLONOSCOPY 2013 CYSTOSCOPY 07/26/2023 With Urethral Dilation TUBAL LIGATION URETHRA SURGERY dilitation Visit Vitals BP 128/78 Pulse 66 Ht 5' 5.5 Wt 175 lb SpO2 96% BMI 28.68 kg/m Smoking Status Never BSA 1.92 m Review of Systems Constitutional: Negative for chills, fatigue and fever. HENT: Positive for postnasal drip and rhinorrhea. Respiratory: Negative for cough, shortness of breath and wheezing. Cardiovascular: Negative for chest pain, palpitations and leg swelling. Gastrointestinal: Positive for abdominal pain (Lower abdomen), constipation and nausea. Negative for blood in stool, diarrhea and vomiting. Skin: Negative for rash. Objective Physical Exam Constitutional: General: She is not in acute distress. Appearance: Normal appearance. She is well-developed. HENT: Head: Normocephalic and atraumatic. Eyes: General: No scleral icterus. Conjunctiva/sclera: Conjunctivae normal. Cardiovascular: Rate and Rhythm: Normal rate and regular rhythm. Heart sounds: Normal heart sounds. No murmur heard. Pulmonary: Effort: Pulmonary effort is normal. No respiratory distress. Breath sounds: Normal breath sounds. No wheezing, rhonchi or rales. Abdominal: General: Bowel sounds are normal. Palpations: Abdomen is soft. There is no hepatomegaly. Tenderness: There is abdominal tenderness in the suprapubic area. Skin: General: Skin is warm and dry. Neurological: General: No focal deficit present. Mental Status: She is alert and oriented to person, place, and time. Psychiatric: Mood and Affect: Mood normal. Behavior: Behavior normal. Assessment/Plan Diagnoses and all orders for this visit: Diverticulosis Encouraged pt to continue to stay hydrated. Gastroesophageal reflux disease without esophagitis Continue Pepcid as prescribed. May add 2 weeks of a PPI in the future if symptoms persist. Nausea - ondansetron (Zofran) 4 MG tablet; Take 1 tablet (4 mg) by mouth every 8 (eight) hours if needed for nausea Provided pt with refill on Zofran to take as needed for nausea. Slow transit constipation Patient did have a difficult time explaining her current symptoms. She states the Dicyclomine has been helpful with the frequent bowel sounds, and has had more solid BM's since taking it, has not worsened her constipation. She can continue with it as needed for now. Advised pt that if she is able to have a substantial BM, her symptoms will likely improve. Encouraged her to try a dose of Miralax, which she has at home. Continue to use hemorrhoid cream daily, to help with rectal irritation she has been having due to frequent BM's. She is still passing gas and having small BM's, no dark stools or blood in stool, so I do not have suspicion for bowel obstruction at this time and her abdomen is non-acute on exam. Will hold off on imaging at this time, will consider if symptoms persist or worsen. Nasal drainage Patient can use OTC Claritin with decongestant once a day. She does ues a nasal spray OTC, but does not know which one. Follow up if symptoms worsen or fail to improve. documented in this encounter [facility] Radiology Diagnostic study note 08-29-2024 Note Date & Type Note Facility 08-29-2024 Radiology Diagnostic study note [facility] [address] [place] [address] Ultrasound Report Signed Patient: Veronica Ramirez MR#: [id number] : 1940 Acct:[id number] Age/Sex: 84 / F ADM Date: 4 Loc: [facility] Room: Type: [facility] Attending Dr: Bina Tsang WE[employer] RO[employer] SUPERVISOR-C Ordering Provider: Bina Tsang APRN Date of Service: 08/29/24 US/US carotid doppler BI: I65.23 - Occlusion and stenosis of bilateral carotid mayito... Copies to: Bina Tsang APRN~ CAROTID DUPLEX INDICATION: Surveillance study for possible carotid artery stenoses identified at outside hospital. PROCEDURE: Color-flow duplex scanning is used to interrogate the extracranial carotid arterial system, as well as both vertebral arteries. Both carotid bifurcations show some smooth homogeneous plaque formation. The proximal right internal carotid artery shows a highest peak systolic velocity of 145 cm/s with an end-diastolic velocity of 27.1 cm/s . The mid internal carotid artery measures 114 cm/s peak systolic with an end diastolic velocity of 20.4 cm/s . The distal segment measures 60.8 cm/s peak systolic with an end diastolic velocity of 15.3 cm/s . The velocities of the right common carotid artery are 119 cm/s peak systolic and 19.4 cm/s end-diastolic and 84 cm/s peak systolic and13.3 cm/s end diastolic distally. The peak systolic velocity ratio of the internal to the common carotid artery is 1.22 . The external carotid artery measures 103 cm/s peak systolic. The right vertebral artery is patent at 49.2 cm/s peak systolic with antegrade flow. The proximal left internal carotid artery shows a highest peak systolic velocityof 124 cm/s with an end-diastolic velocity of 24.3 cm/s . The mid internal carotid artery measures 155 cm/s peak systolic with an end diastolic velocity of32.9 cm/s . The distal segment measures 88.2 cm/s peak systolic with an end diastolic velocity of 20.5 cm/s . The velocities of the left common carotid artery are 132 cm/s peak systolic and 14.9 cm/s end-diastolic and 107 cm/s peak systolic and 23.1 cm/s end diastolic distally. The peak systolic velocity ratioof the internal to the common carotid artery is 1.17 . The external carotid artery measures 96 cm/s peak systolic. The left vertebral artery is patent at 72 cm/s peak systolic with antegrade flow. US/US carotid doppler BI IMPRESSION: MILD PLAQUE FORMATION IS NOTED BILATERALLY, WITH LESS THAN 50% STENOSIS OF BOTH EXTRACRANIAL INTERNAL CAROTID ARTERY. BOTH VERTEBRAL ARTERIES ARE PATENT WITH ANTEGRADE FLOW. Impression dictated by: Jose Muñoz MD08/29/2024 3:57 PM Dictation Location: [place] [address] Tech: [employer] Transcribed By: PETRONA 08/29/24 155 Dictated By: Jose Muñoz MD 08/29/24 1557 Signed By: 08/29/24 1557 [facility] Work Phone: Evaluation note 08-29-2024 Note Date & Type Note Facility 08-29-2024 Evaluation note Diagnosis Onset Date Resolution Carotid stenosis, bilateral acute August 29, 2 024 12:01pm [facility] Work Phone: Evaluation note 08-29-2024 Note Date & Type Note Facility 08-29-2024 Evaluation note Diagnosis Onset Date Resolution Carotid stenosis, bilateral acute August 29, 2 024 12:01pm Abdominal pain acute October 292024 8:38am Alternating constipation and diarrhea acute October 29 8:38am Change in bowel function acute October 29, 2024 8:38am Family history of rectal cancer acute October 29 8:38am History of diverticulosis acute October 29 8:38am Nausea acute October 29, 2024 8:38am [facility] Work Phone: Evaluation + Plan note Note Date & Type Note Facility Evaluation + Plan note No data available for this section [facility] Evaluation note Note Date & Type Note Facility Evaluation note No assessment information availa [facility] [place] Work Phone: Evaluation note Note Date & Type Note Facility Evaluation note Diagnosis Diverticulosis- Primary Diverticulosis of colon (without mention of hemorrhage) Gastroesophageal reflux disease without esophagitis Esophageal reflux Nausea Nausea alone Slow transit constipation Nasal drainage documented in this encounter [facility] Discharge instructions Note Date & Type Note Facility Hospital Discharge instructions No data available for this section [facility] Progress note Note Date & Type Note Facility Progress note No data available for this section [facility] Summary Purpose Family History Relationship Condition Age at Onset Recorded Date/T alex brother Unknown Advance Directives Advance Directive Response Recorded Date/ Time Advance Directives No March 15 4 3:17pm Advance Directive Response Recorded Date/ Time Advance Directives No March 15 4 2:17pm Chief Complaint and Reason for Visit Chief Complaint Ref for Carotid Sten osis; non symptomatic Chief Complaint Admit Date I65.23 August 29, 2024 12:00pm 6 month follow up; Carotid U/S at 12:00p m August 29, 2024 12:01pm Reason for Visit Admit Date Carotid stenosis, bilateral August 12:01pm Chief Complaint Admit Date I65.23 August 29, 2024 12:00pm 6 month follow up; Carotid U/S at 12:00p m August 29, 2024 12:01pm diverticulitis, diarrhea, ab pain Januar y 2024 8:38am Reason for Visit Admit Date Carotid stenosis, bilateral August 12:01pm Abdominal pain October 29, 2024 8 :38am Alternating constipation and diarrhea Ja nuary 2024 8:38am Change in bowel function October 29 8:38am Family history of rectal cancer October 29, 2024 8:38am History of diverticulosis October 29, 2024 8:38am Nausea October 29, 2024 8 :38am Additional Source Comments INFORMATION SOURCE (unrecogn ized section and content) DATE CREATED AUTHOR 02/17/2023 [facility] DATE CREATED AUTHOR AUTHOR'S ORGANIZ ATION 04/21/2023 [facility] DATE CREATED AUTHOR AUTHOR'S ORGANIZ ATION 09/03/2024 [facility] DATE CREATED AUTHOR AUTHOR'S ORGANIZ ATION 09/10/2024 [facility] Patient Care team informatio n (unrecognized section and content) Team Status: Active Member Role Status Dates Pardeep Cordova II MD Primary Care Provider Active Team Status: Inactive Member Role Status Dates Pardeep Cordova II MD Primary Care Provider Active Start: August 29, 2024 End: August 29, 2024 ARMEN Yo Attending Provider Active Start: August 29, 2024 End: August 29, 2024 Team Status: Inactive Member Role Status Dates Pardeep Cordova II MD Primary Care Provider Active Start: August 29, 2024 End: August 29, 2024 Jose Muñoz MD Attending Provider Active Start: August 29, 2024 End: August 29, 2024 Team Status: Active Member Role Status Dates Pardeep Cordova II MD Primary Care Provider Active Start: August 29, 2024 Bina Tsang NP-C Attending Provider Active Start: August 29, 2024 Team Status: Inactive Member Role Status Dates Pardeep Cordova II MD Primary Care Provider Active Start: April 18, 2024 End: April 18, 2024 Jose Muñoz MD Attending Provider Active Start: April 18, 2024 End: April 18, 2024 [employer] Floor[employer] Relationship Specialty Start Date End Date Pardeep Cordova MD [address] [facility] [address] [place] [address] PCP - General Internal Medicine 04/22/23 Puja Gutierrez NP [address] [place] [address] [place] [address] PCP - [facility] 10/17/23 09/15/61 Team Status: Inactive Member Role Status Dates Pardeep Cordova II MD Primary Care Provider Active Start: October 29, 2024 End: October 29, 2024 Jason Iyer MD Attending Provider Active Start: October 29, 2024 End: October 29, 2024 Goals (unrecognized section and content) Goals may be documented in a n alternate section Reason for Visit (unrecogniz ed section and content) Reason Comments Nausea bowel issues FOR RECORDS PERTAINING TO PATIENTS WHO ARE OR HAVE BEEN ENROLLED IN A CHEMICAL DEPENDENCY/SUBSTANCEABUSE PROGRAM, SOME INFORMATION MAY BE OMITTED. This clinical summary was aggregated from multiple sources. Caution should be exercised in using it in the provision of clinical care. This summary normalizes information from multiple sources, and as a consequence, information in this document may materially change the coding, format and clinical context of patient data. In addition, data may be omitted in some cases. CLINICAL DECISIONS SHOULD BE BASED ON THE PRIMARY CLINICAL RECORDS. [employer] [facility]. provides no warranty or guarantee of the accuracy or completeness of information in this document.
[2024-11-10 02:07] LABS: Calprotectin, Fecal 27 ug/g (0-120)
== END 2024-11-07 14:09 | disposition home or self-care (01) ==
LOC: LAB 14:08
PROVIDERS: PCP Nurse Practitioner Family; Visit Provider Internal Medicine
DX: R19.8 Other specified symptoms and signs involving the digestive system and abdomen (principal); I83.893 Varicose veins of bilateral lower extremities with other complications
CPT/HCPCS: 83993

== ENCOUNTER 2024-11-09 16:25 | Outpatient (OUT) | payer MEDICARE, SELFPAY ==
--- OUTSIDE RECORDS SUMMARY | 2024-11-09 16:47 | XMS_ITS | CCD ---
Author Organization [facility] CliniSy[facility] Care Team Providers Care Computer Software Engineer Name Role Phone DR PARDEEP CORDOVA Admitting [...] Unavailable CORDOVA, DR FALL Primary Care Unavailable OLIVEHURST, DR CELESTE Preciado Consulting Unavailable MARIANNE, PUJA Consulting Unavailable PARDEEP CORDOVA Primary Care Physician PARDEEP CORDOVA Referring Unavailable MINERVA HECK Attending Unavailable Pura Herrmann. Attending Unavailable PARDEEP CORDOVA Referring Unavailable Pardeep Cordova II Primary Care Provider Bina Bojorquez Attending Provider Bina Tsang Attending Unavailable Bina Tsang Admitting Unavailable Pardeep Cordova Primary Care Unavailable Pardeep Cordova MD Primary Care Provider Puja Gutierrez NP Unavailable PUJA GUTIERREZ Attending Unavailable PUJA GUTIERREZ Attending Unavailable PUJA GUTIERREZ Attending Unavailable ISABEL COOK Attending Unavailable Allergies Allergy Classification Reported Allergen(s) Allergy Type Date of Onset Reaction(s) Facility (2 sources) Iodine (And Iodine Containting Drugs) Drug allergy (disorder) 3 [facility] Repository (2 sources) lansoprazole Drug Allergy 3 [facility] Repository (1 source) Omeprazole Drug Allergy [facility] Repository (7 sources) Penicillins; Translations: [penicillins] Drug allergy (disorder) 3 Topography unknown (body structure) [facility] Repository (2 sources) Contrast media; Translations: [Contrast Dye] Allergy to substance unknown [facility] (4 sources) Meperidine; Translations: [meperidine] Drug Allergy 3 Topography unknown (body structure), Nausea Only [facility] (7 sources) lansoprazole; Translations: [lansoprazole] Drug Allergy 3 Unknown [facility] (5 sources) Proton Pump Inhibitors; Translations: [Proton Pump Inhibitors] Allergy to substance 4 Unknown Reaction [facility] (1 source) Penicillins Drug allergy (disorder) 4 [facility] Repository (2 sources) Penicillins Drug Allergy 4 Unknown [facility] (2 sources) Iodinated Contrast Media Drug Intolerance 4 Rash [facility] Medications Current Medications Medication Drug Class(es) Dates [...] / neomycin 3.5 mg/ml / polymyxin b 24493 unt/ml ophthalmic suspension (2 sources) Aminoglycoside Antibacterial, Polymyxin-class Antibacterial, Corticosteroid Start: 2022 take 1 drop(s) into the eye(s) four times daily [id number]-[id number]-rfb AMETHasone (Maxitrol) 3.5-61579-1.1 ophthalmic suspension INSTILL 1 DROP INTO BOTH [...] mg by mouth Daily as needed. Active [place] 1-Zit-Yfs-Fish Oil (Fish Oil) 1,000 mg (120 mg-180 mg) Capsule (4 sources) Start: 05-29-2018 take 1 capsule by mouth once daily [place] 0-Jts-Qwa-Fish Oil (Fish Oil) 1,000 mg (120 mg-180 mg) Capsule Active 1 CAP PO Daily May 28, 2018 11:00pm Start: 05-29-2018 take 1 capsule by mo [facility] once daily [place] 6-Mxm-Xki-Fish Oil (Fish Oil) 1,000 mg (120 mg-180 [...] doppler BIon 08-17 US carotid doppler BI [facility] [address] [place] [address] Ultrasound Report Signed Patient: Veronica Ramirez MR#: [id number] 64 : 1940 Acct:[id number] Age/Sex: 84 / F ADM Date: 08/29/24 Loc: [facility] Room: Type: [facility] Attending Dr: Bina Tsang DOLLYMAN-C Ordering Provider: Bina Tsang APRN Date of [...] Jose Muñoz MD08/29/2024 3:57 PM Dictation Location: [place] [address] Tech: Minerva Colon Transcribed By: [facility] 08/29/24 1557 Dictated By: Jose Muñoz MD 08/29/24 155 Signed By: 08/29/24 1557 Normal [facility] MG MAMM SCREEN 3D GOMEZ CADon 02-14-2023 MG MAMM SCREEN 3D GOMEZ CAD Patient: VERONICA RAMIREZ Exam Date: 02/14/2023 : 1940 Gender:F Ordering : MRS. LUO MARIANNE DOLLYMAN-C Admission #: [id number] Family : Order #: [id number] CLICK HERE TO VIEW EXAM RADIOLOGY REPORT [...] bladder cancer at age 70. LOCATION: [facility] BREAST COMPOSITION: Scattered areas fibroglandular density. FINDINGS: [...] Dyson M.D. on 02/15/2023 at 11:47 Normal [facility] XR DEXA BONE DENSITYon 02-14 XR DEXA [...] by: GUERRERO DYSON Date: 2023-02-14 15:29 Normal [facility] ECHOCARDIO M/2D COMPLETEon 0 02-03-2023 ECHOCARDIO M/2D COMPLETE Patient: VERONICA RAMIREZ Exam Date: 02/03/2023 : 1940 Gender:F Ordering : MRS. PUJA GUTIERREZ DOLLYMAN-C Admission #: [id number] Family : Order #: [id number] CLICK HERE TO VIEW EXAM ECHOCARDIOGRAM REPORT [...] Yang M.D. on 02/03/2023 at 20:33 Normal [facility] US CAROTID ART BILon -20-2 023 US [...] by: CELESTE BRAND Date: 2023-02-03 17:[address] [facility] [address] LUNG CANCER SCREENINGon 1 11-07-2021 CT [...] by: GUERRERO DYSON Date: 2022-09-07 21:47 Normal [facility] Vital Signs Date Time Vital Sign Value Performing Clinician Facility 10-29-2024 09:06-0500 Body height 166.37 cm Pardeep Cordova II Work Phone: [facility] 10-29-2024 09:06-0500 Body mass index (BMI) [Ratio] 29.8 kg/m2 Pardeep Cordova II Work Phone: [facility] 10-29-2024 09:06-0500 Body weight 82.7 kg Pardeep Cordova II Work Phone: [facility] 09-07-2024 11:41-0500 Body height 166.4 cm Isabel Hemmer PA Work Phone: [facility] 09-07-2024 11:41-0500 Body mass index (BMI) [Ratio] 28.68 kg/m2 Isabel Hemmer PA Work Phone: [facility] 09-07-2024 11:41-0500 Body weight 79.38 kg Isabel Hemmer PA Work Phone: [facility] 09-07-2024 11:41-0500 Diastolic blood pressure 78 mm[Hg] Isabel Hemmer PA Work Phone: [facility] 09-07-2024 11:41-0500 Heart rate 66 /min Isabel Hemmer PA Work Phone: [facility] 09-07-2024 11:41-0500 SaO2% (BldA) [Mass fraction] 96 % Isabel Hemmer PA Work Phone: [facility] 09-07-2024 11:41-0500 Systolic blood pressure 128 mm[Hg] Isabel Hemmer PA Work Phone: [facility] 08-29-2024 12:25-0500 Body temperature 96.7 [degF] Pardeep Cordova II Work Phone: [facility] 08-29-2024 12:25-0500 Diastolic blood pressure 70 mm[Hg] Pardeep Cordova II Work Phone: [facility] 08-29-2024 12:25-0500 Heart rate 78 /min Pardeep Cordova II Work Phone: [facility] 08-29-2024 12:25-0500 SaO2% (BldA) [Mass fraction] 95 % Pardeep Cordova II Work Phone: [facility] 08-29-2024 12:25-0500 Systolic blood pressure 128 mm[Hg] Pardeep Cordova II Work Phone: [facility] 04-18-2024 11:54-0400 Body height 166.[address] [facility] 04-18-2024 11:54-0400 Body mass index (BMI) [Ratio] 29.5 kg/m2 [facility] 04-18-2024 11:54-0400 Body temperature 97.8 [degF] [facility] 04-18-2024 11:54-0400 Body weight 81.[address] [facility] 04-18-2024 11:54-0400 Diastolic blood pressure 82 mm[Hg] [facility] 04-18-2024 11:54-0400 Heart rate 64 /min [facility] 04-18-2024 11:54-0400 Respiratory rate 16 /min [facility] 04-18-2024 11:54-0400 SaO2% (BldA) [Mass fraction] 98 % [facility] 04-18-2024 11:54-0400 Systolic blood pressure 124 mm[Hg] [facility] Encounters Encounter Date Encounter Type Care Provider Facility Start: 10-29-2024 End: 10-29-2024 ambulatory Pardeep Cordova II Work Phone: [facility] Work Phone: Start: 10-29-2024 End: 10-29-2024 Patient encounter procedure Pardeep Cordova II Work Phone: [facility] Work Phone: Start: 09-07-2024 End: 09-07-2024 Office outpatient visit 25 minutes Isabel COTO Work Phone: [facility] Comment on above: Diverticulosis (Prim stacey Dx); Gastroesophageal reflux disease without esophagitis; Nausea; Slow transit constipation; Nasal drainage Start: 09-07-2024 End: 09-07-2024 ambulatory ISABEL COOK Not Available Start: 08-29-2024 End: 08-29-2024 Patient encounter procedure Pardeep Cordova II Work Phone: [facility] Work Phone: Start: 08-29-2024 End: 08-29-2024 ambulatory Pardeep Cordova II Work Phone: [facility] Work Phone: Start: 04-26-2024 End: 04-26-2024 ambulatory PUJA GUTIERREZ Not Available Start: 04-18-2024 End: 04-18-2024 ambulatory [facility] Work Phone: Start: 04-18-2024 End: 04-18-2024 Patient encounter procedure [facility] V[facility] Work Phone: Start: 02-21-2024 End: 02-21-2024 ambulatory PUJA GUTIERREZ Not Available Start: 02-02-2024 End: 02-02-2024 ambulatory PUJA GUTIERREZ Not Available Start: 04-20-2023 End: 04-21-2023 ambulatory Pura Herrmann Facility:[facility] Start: 04-20-2023 End: 04-20-2023 Patient encounter procedure Pura Herrmann [facility] Start: 03-09-2023 ambulatory PARDEEP CORDOVA Facility :[facility] Start: 02-14-2023 End: 02-15-[address] PARDEEP CORDOVA Facility:[facility] Start: 02-03-2023 End: 02-04-2023 ambulatory PUJA GUTIERREZ Facility:[facility] Start: 09-30-[address] PARDEEP CORDOVA Facilit y:[facility] Start: 09-11-2022 Encounter for genera l adult medical examination without abnormal findings PUJA GUTIERREZ [facility] Start: 09-06-2022 End: 09-07-2022 ambulatory PUJA GUTIERREZ Facility:[facility] Start: 09-06-2022 End: 09-07-2022 Encounter for general adult medical examination without abnormal findings PUJA GTUIERREZ Facility:[facility] Start: 06-12-2022 ambulatory PUJA GUTIERREZ Facility [...] bilateral carotid arteries US carotid doppler BI [facility] Start: 10-14-2022 Pneumococcal Vaccine: 65+ Years (2 of 2 - PCV) Pneumococcal Vaccine: 65+ Years (2 of 2 - PCV) [facility] CT Abdomen and Pelvi s W contrast IV [facility] US.doppler Carotid arteries - bilateral [facility] Immunizations Immunization Date Immunization Notes Care Provider Fa cility 08-21-2024 zoster vaccine recombinant Isabel Hemmer PA Work Phone: [facility] 07-20-2024 influenza, high dose seasonal, preservative-free Isabel Hemmer PA Work Phone: [facility] 07-07-2023 Influenza, Seasonal, Quadrivalent, Adjuvanted Isabel Hemmer PA Work Phone: [facility] 09-16-2022 Influenza, Seasonal, Quadrivalent, Adjuvanted Isabel Hemmer PA Work Phone: [facility] 07-12-2022 Moderna SARS-CoV-2 50mcg/0.5mL Booster Isabel Hemmer PA Work Phone: [facility] 10-14-2021 pneumococcal polysaccharide vaccine, 23 valent Isabel Hemmer PA Work Phone: [facility] 09-09-2021 Influenza, High-dose Seasonal, Quadrivalent, Preservative Free Isabel Hemmer PA Work Phone: [facility] 10-17-2020 SARS-CoV-2 (COVID-19 ) mRNA BNT-162b2 vax Pura Herrmann [facility] Comment on above: Result Comment: pt i s fully vaccinated and has had a booster but does not have her card for the dates. 08-06-2020 influenza, high dose seasonal, preservative-free Isabel COTO Work Phone: [facility] 05-16-2015 pneumococcal polysaccharide vaccine, 23 valent Isabel COTO Work Phone: [facility] 09-03-2014 influenza virus vacc ine, whole virus Isabel COTO Work Phone: [facility] 07-02-2013 seasonal influenza, intradermal, preservative free Isabel COTO Work Phone: [facility] 10-17-2012 zoster vaccine, live Isabel COTO Work Phone: [facility] 10-29-2011 zoster vaccine, live Isabel COTO Work Phone: [facility] 01-15-2005 pneumococcal polysaccharide vaccine, 23 valent Isabel COTO Work Phone: [facility] Payers Date Payer Category Payer Self-pay [id number] 2022 Medicare (Managed Care) [facility]IC[facility] [id number] 2021 Medicare [id number] 2021 Private Health Insurance [id number] 1959 Medicare [id number] 1959 Self-pay [id number] 1940 Unknown [id number] .593 1940 Unknown [id number] .593 1940 Unknown [id number] [id number] .593 1940 Unknown [id number] [id number] .593 1940 Unknown [id number] [id number] .593 1940 Unknown [id number] [id number] .727 1940 Unknown [id number] 2.16.840.1.445690.3.579.2 .727 1940 Unknown [id number] 2.16.840.1.329061.3.579.2 .1259 1940 Unknown [id number] 2.16.840.1.037195.3.579.2 .1259 1940 Unknown [id number] 2.16.840.1.239430.3.579.2 .1259 1940 Unknown [id number] 2.16.840.1.488325.3.579.2 .1259 Medicare Medicare [id number] Private Health Insurance [id number] Private Health Insurance [facility] [id number] Unknown [id number] .531 Social History Date Type Detail Facility Start: 09-24-2021 End: 03-15-2024 Tobacco smoking status Ex-smoker (finding) [facility] Sex Assigned At Sex [facility] Start: 1940 Sex Assigned At Female [facility] Start: 08-29-2024 End: 10-29-2024 Sex Female (finding) [facility] Start: 09-07-2024 [facility] Start: 09-07-2024 [...] Pt does have an appt with a spectrographic analyst. Seeing Dr. Jason Iyer on 10/29/2024. Pt [...] 800 mg by mouth Daily as needed. ppuhghkn-vignupadp-ifqWQTHKsumna (Maxitrol) 3.5-50379-8.1 ophthalmic suspension INSTILL 1 DROP INTO BOTH [...] fail to improve. documented in this encounter [facility] Radiology Diagnostic study note 08-29-2024 Note Date & Type Note Facility 08-29-2024 Radiology Diagnostic study note [facility] [address] [place] [address] Ultrasound Report Signed Patient: Veronica Ramirez MR#: [id number] : 1940 Acct:[id number] Age/Sex: 84 / F ADM Date: 4 Loc: [facility] Room: Type: [facility] Attending Dr: Bina Tsang DOLLYMAN-C Ordering Provider: Bina Tsang APRN Date of [...] Jose Muñoz MD08/29/2024 3:57 PM Dictation Location: [place] [address] Tech: Minerva Colon Transcribed By: PETRONA 08/29/24 155 Dictated By: Jose Muñoz MD 08/29/24 1557 Signed By: 08/29/24 1557 [facility] Work Phone: Evaluation note 08-29-2024 Note Date & Type Note Facility 08-29-2024 Evaluation note Diagnosis Onset Date Resolution Carotid stenosis, bilateral acute August 29, 2 024 12:01pm [facility] Work Phone: Evaluation note 08-29-2024 Note Date [...] 8:38am Nausea acute October 29, 2024 8:38am [facility] Work Phone: Evaluation + Plan note Note Date & Type Note Facility Evaluation + Plan note No data available for this section [facility] Evaluation note Note Date & Type Note Facility Evaluation note No assessment information availa [facility] Work Phone: Evaluation note Note Date & Type Note Facility Evaluation note Diagnosis Diverticulosis- Primary Diverticulosis of colon (without mention of hemorrhage) Gastroesophageal reflux disease without esophagitis Esophageal reflux Nausea Nausea alone Slow transit constipation Nasal drainage documented in this encounter [facility] Hospital Discharge instructions Note Date & Type Note Facility Hospital Discharge instructions No data available for this section [facility] Progress note Note Date & Type Note Facility Progress note No data available for this section [facility] Summary Purpose Family History Relationship Condition [...] and content) DATE CREATED AUTHOR 02/17/2023 [facility] DATE CREATED AUTHOR AUTHOR'S ORGANIZ ATION 04/21/[address] [facility] DATE CREATED AUTHOR AUTHOR'S ORGANIZ ATION 09/03/2024 [facility] DATE CREATED AUTHOR AUTHOR'S ORGANIZ ATION 09/10/2024 [facility] Patient Care team informatio n (unrecognized [...] April 18, 2024 End: April 18, 2024 Computer Software Engineer Relationship Specialty Start Date End Date Pardeep Cordova MD [address] [facility] [address] [place] [address] PCP - General Internal Medicine 04/22/23 Puja Gutierrez NP [address] [place] [address] [place] [address] PCP - [facility] 10/17/23 09/15/61 Team Status: Inactive Member [...] BE BASED ON THE PRIMARY CLINICAL RECORDS. [employer] [facility]. provides no warranty or guarantee of the accuracy or completeness of information in this document.
[2024-11-09 16:51] LABS: Basophils Absolute Auto 0.1 10^3/uL (0.0-0.1); Basophils Percent Auto 0.8 % (0.2-2.0); Eosinophils Absolute Auto 0.2 10^3/uL (0.0-0.7); Eosinophils Percent Auto 2.8 % (0.9-7.0); Hematocrit 43.5 % (36.0-48.0); Hemoglobin 13.9 g/dL (12.0-16.0); Immature Granulocytes Abs Auto 0.01 10^3/uL (0.00-0.03); Immature Granulocytes Pct Auto 0.1 % (0.0-0.5); Lymphocytes Absolute Auto 2.3 10^3/uL (1.2-3.8); Lymphocytes Percent Auto 30.7 % (20.5-60.0); Mean Corpuscular Hemoglobin 30.7 pg (26.7-34.0); Mean Platelet Volume 9.7 fL (9.5-13.5); Monocytes Absolute Auto 0.6 10^3/uL (0.3-0.8); Monocytes Percent Auto 8.5 % (1.7-12.0); Neutrophils Absolute Auto 4.3 10^3/uL (1.4-6.5); Neutrophils Percent Auto 57.1 % (43.0-75.0); Platelet Count 274 10^3/uL (150-450); Red Blood Count 4.53 10^6/uL (4.20-5.40); Red Cell Distribution Width 12.3 % (11.0-15.0); White Blood Count 7.5 10^3/uL (4.0-11.0)
[2024-11-09 17:24] LABS: C Reactive Protein <0.50 mg/dL (<=0.50); Estimated GFR (African America >60 (>=60 mL/min/1.73m^2); Estimated GFR (Non-African Ame >60 (>=60 mL/min/1.73m^2); Thyroid Stimulating Hormone 2.309 uIU/mL (0.358-3.740)
== END 2024-11-09 16:26 | disposition home or self-care (01) ==
LOC: LAB 16:25
PROVIDERS: PCP Nurse Practitioner Family; Visit Provider Internal Medicine
DX: R19.8 Other specified symptoms and signs involving the digestive system and abdomen (principal); I83.893 Varicose veins of bilateral lower extremities with other complications; R10.9 Unspecified abdominal pain
CPT/HCPCS: 36415; 82565; 84443; 85025; 86140

== ENCOUNTER 2024-11-12 11:11 | Outpatient (OUT) | payer MEDICARE, SELFPAY ==
--- NOTE | 2024-11-12 12:34 | CT_ITS ---
[address] [address] Patient Name: CELI RAMIREZ MRN: [id number] date: 1940 Sex: F Assigned Patient Location: LAB Current Patient Location: LAB Accession/Order Number: [id number] Exam Date: 11/12/2024 14:00 Report Date: 11/12/2024 16:30 At the request of: GEN BARRAGAN Procedure: CT abdomen pelvis w con EXAMINATION: CT abdomen pelvis w con HISTORY: Abdominal pain COMPARISON: CT abdomen pelvis 04/27/2018 TECHNIQUE: Axial, Coronal, and Sagittal images were obtained without and/or with IV contrast as indicated by examination type. Dose reduction techniques were achieved by using automated exposure control and/or adjustment of mA and/or kV according to patient size and/or use of iterative reconstruction technique. FINDINGS: LUNG BASES: No visible pulmonary or pleural disease. LIVER: No enlargement, atrophy, suspicious density, or significant focal lesion. BILIARY: No dilatation or calcification. PANCREAS: No lesion, fluid collection, or abnormal duct dilatation. SPLEEN: No enlargement or focal lesion. ADRENALS: No mass or enlargement. KIDNEYS: No mass, obstruction, or calcification. BOWEL/MESENTERY: Diverticulosis of the descending and sigmoid colon without acute inflammatory changes. No visible mass, obstruction, or bowel wall thickening. AORTA/VASCULAR: No aneurysm or dissection. RETROPERITONEUM: No mass or adenopathy. LYMPH NODES: No adenopathy. URINARY BLADDER: No visible focal wall thickening, lesion, or calculus. PELVIC ORGANS: Abnormal thickened endometrium, 1.4 cm Right ovarian cyst, 2.5 cm. ABDOMINAL WALL: No mass or hernia. BONES: No bony lesion or fracture. OTHER: Negative. CT/CT abdomen pelvis w con IMPRESSION: 1. No acute or specific findings to account for patient's symptoms. 2. Colonic diverticulosis. 3. Abnormal thickening of the endometrium, 1.4 cm, and unexpected 2.5 cm cyst within right ovary. Consider ultrasound evaluation. Electronically authenticated by: SWAPNA MOTTA Date: 11/12/2024 16:30
--- OUTSIDE RECORDS SUMMARY | 2024-11-13 11:27 | XMS_ITS | CCD ---
Author Organization [facility] Care Team Providers Care Prison Keeper Name Role Phone DR PARDEEP CORDOVA Admitting Unavailable ART, DR FALL Primary Care Unavailable CORDOVA, DR [...] Unavailable CORDOVA, DR FALL Primary Care Unavailable SPRINGFIELD, DR CELESTE Preciado Consulting Unavailable MARIANNE, PUJA Consulting Unavailable PARDEEP CORDOVA Primary Care Physician PARDEEP CORDOVA Referring Unavailable MINERVA HECK Attending Unavailable Pura Herrmann Attending Unavailable PARDEEP CORDOVA Referring Unavailable Pardeep [...] Containting Drugs) Drug allergy (disorder) 3 [facility] (2 sources) lansoprazole Drug Allergy 3 [facility] (1 source) Omeprazole Drug Allergy [facility] (7 sources) Penicillins; Translations: [penicillins] Drug allergy (disorder) 3 Topography unknown (body structure) [facility] (2 sources) Contrast media; Translations: [Contrast Dye] Allergy to substance unknown [facility] (5 sources) Meperidine; Translations: [meperidine] Drug Allergy 3 Topography unknown (body structure), Nausea Only [facility] (8 sources) lansoprazole; Translations: [lansoprazole] Drug Allergy 3 Unknown [facility] (5 sources) Proton Pump Inhibitors; Translations: [Proton Pump Inhibitors] Allergy to substance 4 Unknown Reaction [facility] (1 source) Penicillins Drug allergy (disorder) 4 [facility] (3 sources) Penicillins Drug Allergy 4 Unknown [facility] (3 sources) Iodinated Contrast Media Drug Intolerance 4 Rash [facility] Medications Current Medications Medication Drug Class(es) Dates Sig (Normalized) Sig (Original) aspirin 81 mg delayed release oral tablet (4 sources) Platelet Aggregation Inhibitor, Nonsteroidal Anti-inflammatory Drug Start: 05-29-2018 Aspirin (Gerson Low Dose Aspirin) 81 mg Tablet,Delayed Release (Dr/Ec) Active 81 MG PO Daily May 28, 2018 11:00pm atorvastatin 40 mg oral tablet (8 sources) HMG-CoA Reductase Inhibitor Start: 10-30-2024 atorvastatin (Lipitor) 40 MG tablet Indications: Mixed hyperlipidemia (CMS/HCC) Take 1 tablet daily 100 tablet 10/30/2024 Active Start: 04-18-2024 Atorvastatin A ctive MG PO April 18, 2024 12:00am Start: 01-05-2024 Atorvastatin 4 0 mg tablet Active MG PO April 17, 2024 11:00pm Start: 09-24-2021 take 1 mg by mouth once daily atorvastatin 40 mg Tab mg tab(s), Oral, Daily, Refills(s) 0 Start Date: 09/24/21 Status: Ordered cholecalciferol 0.025 mg oral tablet (3 sources) Vitamin D take 1 tablet by mouth in the morning cholecalciferol (Vitamin D-3) 25 MCG (1000 UT) tablet Take 1,000 Units by mouth in the morning. Active dexamethasone 1 mg/ml / neomycin 3.5 mg/ml / polymyxin b [id number] unt/ml ophthalmic suspension (3 sources) Aminoglycoside Antibacterial, Polymyxin-class Antibacterial, Corticosteroid Start: 2022 take 1 drop(s) into the eye(s) four times daily snaqawhr-ukivickld-bpc AMETHasone (Maxitrol) 3.5-81307-2.1 ophthalmic suspension INSTILL 1 DROP INTO BOTH EYES 4 TIMES A DAY FOR 5-7 DAYS 2023 Active dicyclomine hydrochloride 20 mg oral tablet (3 sources) Anticholinergic Start: 2023 End: 2024 dicyclomine [...] / eicosapentaenoic acid 180 mg oral capsule (3 sources) take 1 capsule by mouth in [...] 2024 12:00am famotidine 20 mg oral tablet (4 sources) Histamine-2 Receptor Antagonist Start: 2024 take 1 tablet by mouth once daily at bedtime as needed famotidine (Pepcid) 20 MG tablet Indications: Gastrointestinal hemorrhage associated with intestinal diverticulosis TAKE 1 TABLET BY MOUTH EVERY NIGHT AT BEDTIME NEEDED 100 tablet 2 11/05/2024 Active Start: 02-22-2024 take 1 tablet by tiarra once daily at bedtime as needed famotidine (Pepcid) 20 MG tablet Indications: Gastrointestinal hemorrhage associated with intestinal diverticulosis TAKE 1 TABLET BY MOUTH EVERY NIGHT AT BEDTIME NEEDED 100 tablet 2 02/22/2024 Active Start: 09-24-2021 take 1 mg by mouth t wice daily famotidine 20 mg Tab mg tab(s), Oral, BID, Refills(s) 0 Start Date: 09/24/21 Status: Ordered furosemide 20 mg oral tablet (3 sources) Loop Diuretic Start: 02-21-2024 End: 02-20-2025 take 1 tablet by mouth once daily furosemide (Lasix) 20 MG tablet Indications: Chronic heart failure with preserved ejection fraction (CMS/HCC) Take 1 tablet (20 mg) by mouth Daily 90 tablet 3 02/21/2024 02/20/2025 Active ibuprofen 800 mg oral tablet (3 sources) Nonsteroidal Anti-inflammatory Drug take 1 tablet by mouth every twenty-four hours as needed ibuprofen 800 MG tablet Take 800 mg by mouth Daily as needed. Active Milton 6-Dfb-Rcc-Fish Oil (Fish Oil) 1,000 mg (120 mg-180 mg) Capsule (4 sources) Start: 05-29-2018 take 1 capsule by mouth once daily Milton 4-Xko-Tdx-Fish Oil (Fish Oil) 1,000 mg (120 mg-180 mg) Capsule Active 1 CAP PO Daily May 28, 2018 11:00pm Start: 05-29-2018 take 1 capsule by [facility] once daily Milton 0-Ays-Gkn-Fish Oil (Fish Oil) 1,000 mg (120 mg-180 mg) Capsule Active 1 CAP PO Daily May 29, 2018 12:00am ondansetron 4 mg oral tablet (5 sources) Serotonin-3 Receptor Antagonist Start: 09-07-2024 take 1 tablet by mouth every eight hours as needed for nausea and nausea and nausea ondansetron (Zofran) 4 MG tablet Indications: Nausea Take 1 tablet (4 mg) by mouth every 8 (eight) hours if needed for nausea 21 tablet 2 09/07/2024 Active Start: 09-07-2024 take 1 tablet by tiarra every eight hours as needed for nausea [...] Vit-C-FA (pediatric multivitamin) tablet chewable split tablet (3 sources) take 1 tablet by mouth in the morning Pediatric Multiple Vit-C-FA (pediatric multivitamin) tablet chewable split tablet Take 1 tablet by mouth in the morning. Active permethrin 50 mg/ml topical cream (3 sources) Pyrethroid Start: 04-10-20 24 permethrin (Elimite) 5 % cream Indications: Scabies apply to skin from hairline to toes and wash off 8-10 hours later 60 g 04/10/2024 Active primidone 50 mg oral tablet (3 sources) Anti-epileptic Agent Start: 04-16-20 24 take [...] (Therapy completed) ubidecarenone 30 mg oral capsule (3 sources) co-enzyme Q-10 3 0 MG capsule Take 30 mg by mouth in the morning and 30 mg at noon and 30 mg in the evening. Active vitamin e d-alpha 400 unt or al capsule (3 sources) take 1 capsule by mo uth in the morning alpha tocopherol (Vitamin E) 400 units capsule Take 400 Units by mouth in the morning. Active Vitamins/Minerals tablet (3 sources) Vitamins/Mineral s tablet Daily. Active Completed/Discontinued [...] procedure., # 2 cap(s), Refills(s) 0, Pharmacy: [facility] 1155, 165, cm, 09/24/21 15:04:00 EST, Height/Length [...] capsule,delayed release(DR/EC) Discontinued 40 MG PO Daily October 29, 2024 12:00am October 29, 2024 9:41am Problems Active Problems Problem Classification Problem Date Documented Da te Episodic/Chronic Abdominal pain (2 sources) Abdominal pain; Translations: [Unspecified abdominal pain] 10-29-2024 Episodic Anxiety disorders (3 sources) Generalized anxiety disorder; Translations: [Generalized anxiety disorder] Onset: 3 04-21-2023 Chronic Cancer of head and neck (3 sources) Malignant tumor of glottis; 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] Onset: 3 04-25-2023 Chronic Cardiac dysrhythmias (1 source) Palpitations; Translations: [PALPITATIONS] Onset: 3 Episodic Conditions associated with dizziness or vertigo (3 sources) Meniere's disease; Translations: [Meniere's disease, unspecified ear] Onset: 3 04-21-2023 Chronic Conditions associated with dizziness or vertigo (1 source) Dizziness and giddiness; Translations: [DIZZINESS AND GIDDINESS] Onset: 3 Episodic Congestive heart failure; nonhypertensive (3 sources) Chronic heart failure co-occurrent with normal ejection fraction; Translations: [Chronic diastolic (congestive) heart failure] Onset: 3 04-25-2023 Chronic Diabetes mellitus with complications (3 sources) Secondary diabetes mellitus; Translations: [Diabetes mellitus due to underlying condition with other circulatory complications] Onset: 3 04-25-2023 Chronic Disorders of lipid metabolism (9 sources) Dyslipidemia; Translations: [Hyperlipidemia, unspecified] Onset: 3 04-21-2023 Chronic Diverticulosis and diverticulitis (8 sources) Diverticular disease; Translations: [Diverticulosis of intestine, part unspecified, without perforation or abscess without bleeding] Onset: 8 09-07-2024 Chronic Esophageal disorders (5 sources) Gastroesophageal reflux disease without esophagitis; Translations: [Gastro-esophageal reflux disease without esophagitis] Onset: 3 09-07-2024 Chronic Essential hypertension (3 sources) Essential hypertension; Translations: [Essential (primary) hypertension] Onset: 7 08-18-2023 Chronic Malaise and fatigue (3 sources) Fatigue; Translations: [Chronic fatigue, unspecified] Onset: 3 04-21-2023 Chronic Malaise and fatigue (1 source) Weakness; Translations: [WEAKNESS] Onset: 3 Episodic Menopausal disorders (4 sources) Other primary ovarian failure; Translations: [Decreased estrogen level] Onset: 3 04-21-2023 Chronic Miscellaneous mental health disorders (3 sources) Primary insomnia; Translations: [Primary insomnia] Onset: 3 04-21-2023 Chronic Nausea and vomiting (4 sources) Nausea; Translations: [Nausea] 09-07-2024 Episodic Nutritional deficiencies (3 sources) Vitamin D deficiency; Translations: [Vitamin D deficiency, unspecified] Onset: 3 04-21-2023 Chronic Occlusion or stenosis of precerebral arteries (16 sources) Occlusion and stenosis of unspecified carotid artery; Translations: [Bilateral stenosis of carotid arteries] Onset: 3 Chronic Other bone disease and musculoskeletal deformities (1 source) Other specified disorders of bone density and structure, right thigh; Translations: [OTH D/O BONE DEN STRUCT RT THIGH] Onset: 3 Episodic Other diseases of bladder and urethra (3 sources) Overactive bladder; Translations: [Other neuromuscular dysfunction of bladder] Onset: 3 04-21-2023 Chronic Other ear and sense organ disorders (3 sources) Sensorineural hearing loss, bilateral; Translations: [Sensorineural hearing loss, bilateral] Onset: 3 04-21-2023 Chronic Other gastrointestinal disorders (1 source) Constipation alternates [...] system] 10-29-2024 Episodic Other nervous system disorders (3 sources) Chronic pain; Translations: [Other chronic pain] Onset: 3 04-21-2023 Chronic Other screening for suspected conditions (not mental disorders or infectious disease) (5 sources) Encounter for screening mammogram for malignant neoplasm of breast; Translations: [Encounter for screening for malignant neoplasm of respiratory organs] Onset: 2 Episodic Other upper respiratory disease (3 sources) Allergic rhinitis; Translations: [Allergic rhinitis, unspecified] Onset: 3 04-21-2023 Chronic Other upper respiratory disease (2 sources) Nasal discharge; Translations: [Other specified disorders of nose and nasal sinuses] 09-07-2024 Episodic Other upper respiratory infections (6 sources) Chronic sinusitis; Translations: [Other chronic sinusitis] Onset: 3 04-21-2023 Chronic Peripheral and visceral atherosclerosis (3 sources) Peripheral vascular disease; Translations: [Peripheral vascular [...] of mental health and substance abuse codes (7 sources) Personal history of nicotine dependence; Translations: [Ex-smoker] Onset: 2 04-18-2024 Episodic Varicose veins of lower extremity (6 sources) Varicose veins of lower limb co-occurrent with edema; Translations: [Varicose veins of bilateral lower extremities with other complications] Onset: 4 04-18-2024 Episodic Past or Other Problems Problem Classification Problem Date Documented Da te Episodic/Chronic Abdominal hernia (3 sources) Hiatal hernia; Translations: [Diaphragmatic hernia without obstruction or gangrene] Onset: 04-21-2023 04-21-2023 Episodic Cancer of head and neck (3 sources) History of malignant neoplasm of larynx; Translations: [Personal history of malignant neoplasm of larynx] Onset: 07-15-2021 08-18-2023 Episodic Disorders of teeth and jaw (3 sources) Toothache; Translations: [Other specified disorders of teeth and supporting structures] Onset: 04-21-2023 04-21-2023 Episodic Genitourinary symptoms and ill-defined conditions (9 sources) Blood in urine; Translations: [Hematuria, unspecified] Onset: 05-17-2017 08-18-2023 Episodic Mood disorders (3 sources) Mood disorders Onset: 04-26-2024 04-26-2024 Other diseases of veins and lymphatics (3 sources) Venous varices; Translations: [Varicose veins of other specified sites] Onset: 04-21-2023 04-21-2023 Episodic Other ear and sense organ disorders (3 sources) Bilateral tinnitus; Translations: [Tinnitus, bilateral] Onset: 04-21-2023 04-21-2023 Episodic Other ear and sense organ disorders (3 sources) Tinnitus; Translations: [Tinnitus, unspecified ear] Onset: 04-21-2023 04-21-2023 Episodic Other gastrointestinal disorders (5 sources) Slow transit constipation; Translations: [Slow transit constipation] Onset: 04-21-2023 09-07-2024 Episodic Other gastrointestinal disorders (3 sources) Dysphagia; Translations: [Dysphagia, unspecified] Onset: 04-21-2023 04-21-2023 Episodic Other gastrointestinal disorders (3 sources) Oral phase dysphagia; Translations: [Dysphagia, oral phase] Onset: 04-21-2023 04-21-2023 Episodic Residual codes; unclassified (3 sources) Insomnia; Translations: [Insomnia, unspecified] Onset: 04-21-2023 04-21-2023 Episodic Urinary tract infections (3 sources) Recurrent urinary tract infection; Translations: [Urinary tract infection, site not specified] Onset: 06-22-2023 02-02-2024 Episodic Results Test Name Value Interpretation Reference Range Facil ity ALL CBC WITH AUTO DIFFon BASOPHILS ABSOLUTE AUTO 0.1 [facility] Basophils/100 WBC (Bld) 0.8 % 0.2 - 2.0 % [facility] Eosinophils/100 WBC (Bld) 2.8 % 0.9 - 7.0 % [facility] Erythrocyte distribution width (RBC) [Ratio] 12.3 % 11.0 - 15.0 % [facility] Hematocrit (Bld) [Volume fraction] 43.5 % 36.0 - 48.0 % [facility] Hemoglobin (Bld) [Mass/Vol] 13.9 g/dL 12.0 - 16.0 g/dL [facility] IMMATURE GRANULOCYTES ABS AUTO 0.01 [facility] Immature granulocytes/100 WBC (Bld) 0.1 % 0.0 - 0.5 % [facility] LYMPHOCYTES ABSOLUTE AUTO 2.3 [facility] Lymphocytes/100 WBC (Bld) 30.7 % 20.5 - 60.0 % [facility] MCH (RBC) [Entitic mass] 30.7 pg 26.7 - 34.0 pg [facility] MCHC (RBC) [Mass/Vol] 32 g/dL 29.9 - 35.2 g/dL [facility] MCV (RBC) [Entitic vol] 96 fL 81.0 - 99.0 fL [facility] MONOCYTES ABSOLUTE AUTO 0.6 [facility] Monocytes/100 WBC (Bld) 8.5 % 1.7 - 12.0 % [facility] NEUTROPHILS ABSOLUTE AUTO 4.3 [facility] Neutrophils/100 WBC (Bld) 57.1 % 43.0 - 75.0 % [facility] Platelet mean volume (Bld) [Entitic vol] 9.7 fL 9.5 - 13.5 fL [facility] TBH EO # 0.2 [facility] PLT 274 [facility] RBC 4.53 [facility] WBC 7.5 [facility] US carotid doppler BIon 11- US carotid doppler BI [facility] [address] [place] [address] Ultrasound Report Signed Patient: Veronica Ramirez MR#: [id number] 65 : 1940 Acct:[id number] Age/Sex: 84 / F ADM Date: 08/29/24 Loc: [facility] Room: Type: [facility] Attending Dr: Bina Tsang PANTS CUTTERRachelC Ordering Provider: Bina Tsang APRN Date of Service: 08/29/24 US/US carotid doppler BI: I65.23 - Occlusion and stenosis of bilateral carotid mayito... Copies to: Bnia Tsang APRN CAROTID DUPLEX INDICATION: Surveillance study [...] Jose Muñoz MD08/29/2024 3:57 PM Dictation Location: [place] [address] Tech: Minerva Colon Transcribed By: PETRONA 08/29/241556 Dictated By: Jose Muñoz MD 08/29/241556 Signed By: 08/29/241556 Normal [facility] MG MAMM SCREEN 3D GOMEZ CADon 02-14-2023 MG MAMM SCREEN 3D GOMEZ CAD Patient: VERONICA RAMIREZ Exam Date: 02/14/2023 : 1940 Gender:F Ordering : MRS. LUO MARIANNE PANTS CUTTER-C Admission #: [id number] Family : Order #: [id number] CLICK HERE TO VIEW EXAM RADIOLOGY REPORT [...] bladder cancer at age 70. LOCATION: [facility] BREAST COMPOSITION: Scattered areas fibroglandular density. [...] Dyson M.D. on 02/15/2023 at 11:47 Normal [facility] XR DEXA BONE DENSITYon 02-14 XR [...] by: GUERRERO DYSON Date: 2023-02-14 15:29 Normal [facility] ECHOCARDIO M/2D COMPLETEon 0 02-03-2023 ECHOCARDIO M/2D COMPLETE Patient: VERONICA RAMIREZ Exam Date: 02/03/2023 : 1940 Gender:F Ordering : MRS. PUJA GUTIERREZ PANTS CUTTER-C Admission #: [id number] Family : Order #: [id number] CLICK HERE TO VIEW EXAM ECHOCARDIOGRAM REPORT [...] Yang M.D. on 02/03/2023 at 20:33 Normal [facility] US CAROTID ART BILon 02-03-2 023 US CAROTID ART GOMEZ EXAMINATION: US [...] by: CELESTE BRAND Date: 2023-02-03 17:52 Normal [facility] CT LUNG CANCER SCREENINGon 1 11-07-2021 CT [...] by: GUERRERO DYSON Date: 2022-09-07 21:47 Normal [facility] Vital Signs Date Time Vital Sign Value Performing Clinician Facility 10-29-2024 09:06-0500 Body height 166.37 cm Pardeep Cordova II Work Phone: [facility] 10-29-2024 09:06-0500 Body mass index (BMI) [Ratio] 29.8 kg/m2 Pardeep Cordova II Work Phone: [facility] 10-29-2024 09:06-0500 Body weight 82.7 kg Pardeep Cordova II Work Phone: [facility] 09-07-2024 11:41-0500 Body height 166.4 cm Isabel Hemmer PA Work Phone: [facility] 09-07-2024 11:41-0500 Body mass index (BMI) [Ratio] 28.68 kg/m2 Isabel Hemmer PA Work Phone: [facility] 09-07-2024 11:41-0500 Body weight 79.38 kg Isabel Hemmer PA Work Phone: [facility] 09-07-2024 11:41-0500 Diastolic blood pressure 78 mm[Hg] Isabel Hemmer PA Work Phone: [facility] 09-07-2024 11:41-0500 Heart rate 66 /min Isabel Hemmer PA Work Phone: [facility] 09-07-2024 11:41-0500 SaO2% (BldA) [Mass fraction] 96 % Isabel Hemmer PA Work Phone: [facility] 09-07-2024 11:41-0500 Systolic blood pressure 128 mm[Hg] Isabel Hemmer PA Work Phone: [facility] 08-29-2024 12:25-0500 Body temperature 96.7 [degF] Pardeep Cordova II Work Phone: [facility] 08-29-2024 12:25-0500 Diastolic blood pressure 70 mm[Hg] Pardeep Cordova II Work Phone: [facility] 08-29-2024 12:25-0500 Heart rate 78 /min Pardeep Cordova II Work Phone: [facility] 08-29-2024 12:25-0500 SaO2% (BldA) [Mass fraction] 95 % Pardeep Cordova II Work Phone: [facility] 08-29-2024 12:25-0500 Systolic blood pressure 128 mm[Hg] Pardeep Cordova II Work Phone: [facility] 04-18-2024 11:54-0400 Body height 166.37 cm [facility] 04-18-2024 11:54-0400 Body mass index (BMI) [Ratio] 29.5 kg/m2 [facility] 04-18-2024 11:54-0400 Body temperature 97.8 [degF] [facility] 04-18-2024 11:54-0400 Body weight 81.64 kg [facility] 04-18-2024 11:54-0400 Diastolic blood pressure 82 mm[Hg] [facility] 04-18-2024 11:54-0400 Heart rate 64 /min [facility] 04-18-2024 11:54-0400 Respiratory rate 16 /min [facility] 04-18-2024 11:54-0400 SaO2% (BldA) [Mass fraction] 98 % [facility] 04-18-2024 11:54-0400 Systolic blood pressure 124 mm[Hg] [facility] Encounters Encounter Date Encounter Type Care Provider Facility Start: 11-09-2024 End: 11-09-2024 [facility] Result Encounter Generic External Data Provider [facility] Unsolicited Start: 11-09-2024 End: 11-09-2024 [facility] Result Encounter Generic External Data Provider [facility] Unsolicited Start: 10-29-2024 End: 10-29-2024 ambulatory Pardeep Cordova II Work Phone: [facility] Work Phone: Start: 10-29-2024 End: 10-29-2024 Patient encounter procedure Pardeep Cordova II Work Phone: [facility] Work Phone: Start: 09-07-2024 End: 09-07-2024 Office outpatient visit 25 minutes Isabel COTO Work Phone: [facility] Comment on above: Diverticulosis (Prim stacey Dx); Gastroesophageal reflux disease without esophagitis; Nausea; Slow transit constipation; Nasal drainage Start: 09-07-2024 End: 09-07-2024 ambulatory ISABEL Castillo JOYCE Not Available Start: 08-29-2024 End: 08-29-2024 Patient encounter procedure Pardeep Cordova II Work Phone: [facility] Work Phone: Start: 08-29-2024 End: 08-29-2024 ambulatory Pardeep Cordova II Work Phone: [facility] Work Phone: Start: 04-26-2024 End: 04-26-2024 ambulatory PUJA GUTIERREZ Not Available Start: 04-18-2024 End: 04-18-2024 ambulatory [facility] Work Phone: Start: 04-18-2024 End: 04-18-2024 Patient encounter procedure [facility] Work Phone: Start: 02-21-2024 End: 02-21-2024 ambulatory PUJA GUTIERREZ Not Available Start: 02-02-2024 End: 02-02-2024 ambulatory PUJA GUTIERREZ Not Available Start: 04-20-2023 End: 04-21-2023 ambulatory Pura Herrmann Facility:[facility] Start: 04-20-2023 End: 04-20-2023 Patient encounter procedure Pura Herrmann [facility] Start: 03-09-2023 ambulatory PARDEEP CORDOVA Facility :[facility] Start: 02-14-2023 End: 02-15-[address] PARDEEP CORDOVA Facility:[facility] Start: 02-03-2023 End: 02-04-2023 ambulatory PUJA GUTIERREZ Facility:[facility] Start: 09-30-[address] PARDEEP CORDOVA Facilit y:[facility] Start: 09-11-2022 Encounter for genera l adult medical examination without abnormal findings PUJA GUTIERREZ [facility] Start: 09-06-2022 End: 09-07-2022 ambulatory PUJA GUTIERREZ Facility:[facility] Start: 09-06-2022 End: 09-07-2022 Encounter for general adult medical examination without abnormal findings PUJA GUTIERREZ Facility:[facility] Start: 06-12-2022 ambulatory PUJA GUTIERREZ Facility :[facility] Procedures Date Procedure Procedure Detail Performing Clinician Start: 11-09-2024 ALL CBC WITH AUTO DIFF Generic External Data Provider Start: 08-29-2024 Doppler ultrasonogra phy of bilateral carotid arteries Pardeep Art GLASGOW Work Phone: Start: 07-04-2015 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 Pura Lue Start: 11-01-2011 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 Pura Lue Start: 01-19-2006 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 Pura Lue Start: 12-14-2001 Cystoscope, device ( physical object) Pura Lue Breast prosthesis, d evice (physical object) Pura Lue Ligation of fallopian tube K athy Lue Plan of Treatment Date Care Activity Detail Author Start: 08-29-2024 Doppler ultrasonography of bilateral carotid arteries US carotid doppler BI [facility] Start: 10-14-2022 Pneumococcal Vaccine: 65+ Years (2 of 2 - PCV) Pneumococcal Vaccine: 65+ Years (2 of 2 - PCV) [facility] CT Abdomen and Pelvi s W contrast IV [facility] US.doppler Carotid arteries - bilateral [facility] Immunizations Immunization Date Immunization Notes Care Provider Fa cility 08-21-2024 zoster vaccine recombinant Isabel COTO Work Phone: [facility] 07-20-2024 influenza, high dose seasonal, preservative-free Isabel COTO Work Phone: [facility] 07-07-2023 Influenza, Seasonal, Quadrivalent, Adjuvanted Isabel COTO Work Phone: [facility] 09-16-2022 Influenza, Seasonal, Quadrivalent, Adjuvanted Isabel Hemmer PA Work Phone: [facility] 07-12-2022 Moderna SARS-CoV-2 50mcg/0.5mL Booster Isabel Hemmer PA Work Phone: [facility] 10-14-2021 pneumococcal polysaccharide vaccine, 23 valent Isabel Hemmer PA Work Phone: [facility] 09-09-2021 Influenza, High-dose Seasonal, Quadrivalent, Preservative Free Isabel Hemmer PA Work Phone: [facility] 10-17-2020 SARS-CoV-2 (COVID-19 ) mRNA BNT-162b2 vax Pura Herrmann [facility] Comment on above: Result Comment: pt i s fully vaccinated and has had a booster but does not have her card for the dates. 08-06-2020 influenza, high dose seasonal, preservative-free Isabel Hemmer PA Work Phone: [facility] 05-16-2015 pneumococcal polysaccharide vaccine, 23 valent Isabel Hemmer PA Work Phone: [facility] 09-03-2014 influenza virus vacc ine, whole virus Isabel Hemmer PA Work Phone: [facility] 07-02-2013 seasonal influenza, intradermal, preservative free Isabel Hemmer PA Work Phone: [facility] 10-17-2012 zoster vaccine, live Isabel H emmer PA Work Phone: [facility] 10-29-2011 zoster vaccine, live Isabel H emmer PA Work Phone: [facility] 01-15-2005 pneumococcal polysaccharide vaccine, 23 valent Isabel Hemmer PA Work Phone: [facility] Payers Date Payer Category Payer Self-pay [id number] 2022 Medicare (Managed Care) [facility] MEDICARE [id number] 2021 Medicare [id number] 2021 Private Health Insurance [id number] 1959 Medicare [id number] 1959 Self-pay [id number] 1940 Unknown [id number] [id number] .593 1941 Unknown [id number] 2.16.840.1.298521.3.579.2 .593 1941 Unknown [id number] 2.16.840.1.506852.3.579.2 .593 1941 Unknown [id number] 2.16.840.1.509280.3.579.2 .593 1941 Unknown [id number] 2.16.840.1.212058.3.579.2 .593 1941 Unknown [id number] 2.16.840.1.858491.3.579.2 .727 1941 Unknown [id number] 2.16.840.1.149281.3.579.2 .727 1941 Unknown [id number] 2.16.840.1.236662.3.579.2 .1259 1941 Unknown [id number] 2.16.840.1.996090.3.579.2 .1259 1941 Unknown [id number] 2.16.840.1.123539.3.579.2 .1259 1941 Unknown [id number] 2.16.840.1.848332.3.579.2 .1259 Medicare Medicare [id number] Private Health Insurance [id number] Private Health Insurance [facility] [id number] Unknown [id number] [id number] .531 Social History Date Type Detail Facility Start: 09-24-2021 End: 03-15-2024 Tobacco smoking status Ex-smoker (finding) [facility] Sex Assigned At Sex [facility] Start: 1940 Sex Assigned At Female F [facility] Start: 08-29-2024 End: 10-29-2024 Sex Female (finding) [facility] Start: 09-07-2024 Tobacco smoking stat [facility] Never smoked tobacco [facility] Start: 09-07-2024 Tobacco use and exposure Smokeless tobacco non-user [facility] Start: 04-26-2024 End: 09-07-2024 History of Social function [facility] Start: 04-26-2024 End: 09-07-2024 Tobacco use panel [facility] Start: 1940 Sex assigned at Not [...] Pt does have an appt with a chief mechanical officer. Seeing Dr. Jason Iyer on 10/29/2024. Pt [...] 800 mg by mouth Daily as needed. gxtjvxza-hjkoqnbik-iclVCEYLhuuzd (Maxitrol) 3.5-72978-1.1 ophthalmic suspension INSTILL 1 DROP INTO BOTH [...] to improve. documented in this encounter [facility] Radiology Diagnostic study note 08-29-2024 Note Date & Type Note Facility 08-29-2024 Radiology Diagnostic study note [facility] [address] [place] [address] Ultrasound Report Signed Patient: Veronica Ramirez MR#: [id number] : 1940 Acct:[id number] Age/Sex: 84 / F ADM Date: 4 Loc: [facility] Room: Type: [facility] Attending Dr: Bina Tsang PANTS CUTTER-C Ordering Provider: Bina Tsang APRN Date of [...] Jose Muñoz MD08/29/2024 3:57 PM Dictation Location: [place] [address] Tech: Minerva Colon Transcribed By: PETRONA 08/29/241556 Dictated By: Jose Muñoz MD 08/29/241556 Signed By: 08/29/241556 [facility] Work Phone: Evaluation note 08-29-2024 Note Date & Type Note Facility 08-29-2024 Evaluation note Diagnosis Onset Date Resolution Carotid stenosis, bilateral acute August 29, 2 024 12:01pm [facility] Work Phone: Evaluation note 08-29-2024 Note Date [...] 8:38am Nausea acute October 29, 2024 8:38am [facility] Work Phone: Evaluation + Plan note Note Date & Type Note Facility Evaluation + Plan note No data available for this section [facility] Evaluation note Note Date & Type Note Facility Evaluation note No assessment information availa [facility] Work Phone: Evaluation note Note Date & Type Note Facility Evaluation note Diagnosis Diverticulosis- Primary Diverticulosis of colon (without mention of hemorrhage) Gastroesophageal reflux disease without esophagitis Esophageal reflux Nausea Nausea alone Slow transit constipation Nasal drainage documented in this encounter [facility] Hospital Discharge instructions Note Date & Type Note Facility Hospital Discharge instructions No data available for this section [facility] Progress note Note Date & Type Note Facility Progress note No data available for this section [facility] Summary Purpose Family History Relationship Condition Age at Onset Recorded Date/T alex brother Unknown Advance Directives Advance Directive Response Recorded Date/ Time Advance Directives No March 15 3:17pm Advance Directive Response Recorded Date/ Time Advance Directives No March 15 2:17pm Chief Complaint and Reason for Visit [...] and content) DATE CREATED AUTHOR 02/17/2023 [facility] DATE CREATED AUTHOR AUTHOR'S ORGANIZ ATION 04/21/2023 [facility] DATE CREATED AUTHOR AUTHOR'S ORGANIZ ATION 09/03/2024 [facility] DATE CREATED AUTHOR AUTHOR'S ORGANIZ ATION 09/10/2024 [facility] EPIC Patient Care team informatio n (unrecognized section [...] Care Provider Active Start: August 29, 2024 ARMEN Yo Attending Provider Active Start: August 29, 2024 Team Status: Inactive Member Role Status Dates Pardeep Cordova II MD Primary Care Provider Active Start: April 18, 2024 End: April 18, 2024 Jose Muñoz MD Attending Provider Active Start: April 18, 2024 End: April 18, 2024 Prison Keeper Relationship Specialty Start Date End Date Pardeep Cordova MD [address] [facility] [address] [place] [address] PCP - General Internal Medicine 04/22/23 Puja Gutierrez, PANTS CUTTER [address] [facility] [address] [place] [address] PCP [facility] 10/17/23 09/15/61 Team Status: Inactive Member Role Status Dates Pardeep Cordova II MD Primary Care Provider Active Start: October 29, 2024 End: October 29, 2024 Jason Iyer MD Attending Provider Active Start: October 29, 2024 End: October 29, 2024 Prison Keeper Relationship Specialty Start Date End Date Pardeep Cordova MD [address] [facility] [address] [place] [address] PCP - General Internal Medicine 04/22/23 Puja Gutierrez, PANTS CUTTER [address] [facility] [address] [place] [address] PCP - [facility] 10/17/23 09/15/61 Goals (unrecognized section and content) Goals may [...] BE BASED ON THE PRIMARY CLINICAL RECORDS. [facility]. provides no warranty or guarantee of the accuracy or completeness of information in this document.
== END 2024-11-12 11:12 | disposition home or self-care (01) ==
LOC: LAB 11-13 11:12
PROVIDERS: PCP Nurse Practitioner Family; Visit Provider Internal Medicine
DX: R10.9 Unspecified abdominal pain (principal); Z87.19 Personal history of other diseases of the digestive system; K57.90 Diverticulosis of intestine, part unspecified, without perforation or abscess without bleeding; N83.291 Other ovarian cyst, right side
CPT/HCPCS: 74177; Q9967